=== PATIENT | male | born 1935 | race Caucasian/White ===

== ENCOUNTER 2016-04-29 10:22 | Inpatient (IN) | payer OTHER ==
[~2016-04-29] VITALS: Ht 170.2 cm; Wt 89.8 kg
[~2016-04-29 10:22] MED LIST: CLIN300C86 PO; HYDR-971 PO
[2016-04-29] MEDS ORDERED: VANCOMYCIN 1.5 GM in IV NORMAL SALINE 500ML BAG 500 ML IV ONE (12:15)
[2016-04-29 12:26] VITALS: BP 159/100
--- NOTE | 2016-04-29 12:42 | HP ---
ADMIT DATE: 04/29/2016 CHIEF COMPLAINT: Infected wound. HISTORY OF PRESENT ILLNESS: An 81-year-old white male with a history of atrial fibrillation, chronic venous stasis edema, and gout, was last seen in December of 2014. He came to the office on the day of admission with large infected leg wounds and is admitted for wound care. He states these wounds have been present for about 6 weeks and have been getting increasingly painful but had no other complaints. PAST MEDICAL HISTORY: History of atrial fibrillation. Echocardiogram in 2014 showed an EF of 50% and no other particular abnormalities. He has also been on allopurinol for chronic gout with no problems. History of CKD 3. Last lab work in about 2014. ALLERGIES: No allergies are noted. SOCIAL HISTORY: , nonsmoker, nondrinker. FAMILY HISTORY: Unremarkable. REVIEW OF SYSTEMS: Unremarkable. OBJECTIVE: ENT: All within normal limits. He has very poor hearing. NECK: Revealed no carotid bruits, nodes, or thyroid enlargement. LUNGS: Clear. CARDIOVASCULAR: Irregular rate, rate is about 80-90. No murmurs heard. ABDOMEN: Soft, benign, and nontender. EXTREMITIES: Three large deep wounds on the right lower extremity, the lateral leg wound being the worst and then smaller, but deep wounds on the left anterior leg as well with 3+ pitting edema. Pedal pulses diminished bilaterally. NEUROLOGIC: He has poor hearing. No focal findings were seen. Gait was normal. Cerebellar function normal. ASSESSMENT: 1. Large infected wounds both lower extremities secondary to breakdown of chronic venous stasis. 2. Chronic atrial fibrillation, rate controlled. 3. History of chronic gout. 4. Chronic kidney disease 3. PLAN: Per orders. GARETH DODD MD DR: JESSICA/will JOB#: [id number] / [id number]
[2016-04-29 13:25] VITALS: BP 159/100
[2016-04-29 13:57] LABS: BASO # 0.1 x10^3/uL (0.0-0.2); BASO % 1 % (0-3); EOS % 1 % (0-3); HEMATOCRIT 34.2 % (39.0-53.0); HEMOGLOBIN 10.9 g/dL (13.0-17.5); LYMPH # 1.1 x10^3/uL (1.0-4.8); LYMPH % 13 % (24-48); MEAN CORPUSCULAR HEMOGLOBIN 27 pg (25-35); MEAN CORPUSCULAR HGB CONC 32 g/dL (31-37); MEAN CORPUSCULAR VOLUME 83 fL (79-100); MONO % 10 % (0-9); NEUT % 76 % (31-73); PLATELET COUNT 293 x10^3/uL (140-400); RED CELL DISTRIBUTION WIDTH 18.9 % (11.5-14.5); WHITE BLOOD COUNT 9.1 x10^3/uL (4.0-11.0)
[2016-04-29 14:16] LABS: ALBUMIN 2.6 g/dL (3.4-5.0); ALBUMIN/GLOBULIN RATIO 0.7 (1.0-1.7); CALCIUM 8.8 mg/dL (8.5-10.1); CREATININE 1.5 mg/dL (0.7-1.3); POTASSIUM 4.3 mmol/L (3.5-5.1); TOTAL BILIRUBIN 1.2 mg/dL (0.2-1.0); TOTAL PROTEIN 6.6 g/dL (6.4-8.2); URIC ACID 4.9 mg/dL (3.5-7.2)
[2016-04-29] MEDS: POTASSIUM CHLORIDE 10 MEQ TABLET.ER. PO SCH ×2 (14:49→20:34)
[2016-04-29] MEDS: ALLOPURINOL 100 MG TABLET. PO SCH (14:49)
[2016-04-29] MEDS: MULTIVITAMIN with MINERAL TABLET. PO SCH (14:49)
[2016-04-29] MEDS: ASPIRIN 81 MG TAB.CHEW PO SCH (14:49)
[2016-04-29 15:00] VITALS: BP 139/85
[2016-04-29] MEDS ORDERED: ALLO100T PO (15:05)
[2016-04-29] MEDS ORDERED: ASPI81TA2 PO (15:05)
[2016-04-29] MEDS: FUROSEMIDE 40 MG/4 ML VIAL IVP SCH (15:25)
[2016-04-29] MEDS: NYSTATIN TOPICAL POWDER 15GM BOTTLE. TP SCH ×2 (17:00→20:34)
[2016-04-29 20:49] VITALS: BP 157/102
[2016-04-29 23:00] VITALS: BP_SYST 105; BP_SYST 160; BP_DIAS 80; BP_DIAS 99
[2016-04-30] VITALS (7 sets, daily range): BP systolic 117–172; BP diastolic 84–96
[2016-04-30] MEDS: HYDROCODONE/APAP 5/325MG TABLET. PO PRN (01:33)
[2016-04-30] MEDS: ASPIRIN 81 MG TAB.CHEW PO SCH (08:08)
[2016-04-30] MEDS: FUROSEMIDE 40 MG/4 ML VIAL IVP SCH (08:08)
[2016-04-30] MEDS: ALLOPURINOL 100 MG TABLET. PO SCH (08:08)
[2016-04-30] MEDS: POTASSIUM CHLORIDE 10 MEQ TABLET.ER. PO SCH ×3 (08:09→20:40)
[2016-04-30] MEDS: MULTIVITAMIN with MINERAL TABLET. PO SCH (08:09)
[2016-04-30] MEDS: NYSTATIN TOPICAL POWDER 15GM BOTTLE. TP SCH ×2 (08:09→20:39)
--- NOTE | 2016-04-30 08:23 | PDOC ---
Provider Note Provider Note vss, no temp- edema in legs down, wounds covered- good dp/pt pulses- echo 2014 50 % ef, mild pulm hypertwnsion- alb low 2.6, rest ok- cont daily vanco pending cult- tsh- no more lasix needed now GARETH DODD MD Apr 30, 2016 08:23
[2016-04-30] MEDS: VANCOMYCIN PER PHARMACY MC PRN (09:33)
[2016-04-30] MEDS: ENOXAPARIN 40 MG/0.4 ML DISP.SYRIN. SQ SCH (10:28)
[2016-04-30] MEDS: VANCOMYCIN 1.25 GM in IV NORMAL SALINE 250ML 250 ML IV SCH (15:23)
[2016-05-01] MEDS: HYDROCODONE/APAP 5/325MG TABLET. PO PRN ×2 (02:01→17:51)
[2016-05-01 03:19] VITALS: BP 153/84
[2016-05-01 07:00] VITALS: BP 115/113
--- NOTE | 2016-05-01 07:39 | PDOC ---
Provider Note Provider Note Tmax 100, vss- feels same- tsh up a little, check free T4 - cult pending ,,add merrem re gram neg coverage- c/o pain L shoulder , denies injury, will xr , could be gout related GARETH DODD MD May 01, 2016 07:39
[2016-05-01] MEDS ORDERED: IBUPROFEN 400 MG TABLET. PO PRN (07:45)
[2016-05-01] MEDS: MEROPENEM 1 GM in IV NORMAL SALINE 100ML 100 ML IV SCH ×2 (08:38→18:22)
[2016-05-01] MEDS: MULTIVITAMIN with MINERAL TABLET. PO SCH (08:42)
[2016-05-01] MEDS: POTASSIUM CHLORIDE 10 MEQ TABLET.ER. PO SCH ×3 (08:42→21:07)
[2016-05-01] MEDS: ALLOPURINOL 100 MG TABLET. PO SCH (08:42)
[2016-05-01] MEDS: ENOXAPARIN 40 MG/0.4 ML DISP.SYRIN. SQ SCH (08:42)
[2016-05-01] MEDS: NYSTATIN TOPICAL POWDER 15GM BOTTLE. TP SCH ×2 (08:57→21:07)
--- NOTE | 2016-05-01 09:16 | RAD ---
Left shoulder, 3 views, 05/01/2016: History: Fall, shoulder pain There is severe narrowing of the subacromial space with acromial sclerosis and erosion. The findings are those of chronic rotator cuff degeneration/tear. The humeral head is high riding. There are degenerative changes at the glenohumeral and acromioclavicular articulations. A small bony fragment along the superior aspect of the AC joint appears to be old. No acute fracture or dislocation is identified. IMPRESSION: 1. Evidence of chronic rotator cuff degeneration/tear. 2. Moderate degenerative change at the glenohumeral joint and to a greater degree at the acromioclavicular joint.
--- NOTE | 2016-05-01 09:18 | RAD ---
Right foot, 3 views, 05/01/2016: History: Left foot pain There is a mild hallux valgus deformity with moderate degenerative change at the first MTP joint. Moderate degenerative changes are present at the midfoot level. There is a moderate sized inferior calcaneal spur. No acute fracture or dislocation is identified. IMPRESSION: 1. Moderate degenerative change. 2. No acute bony abnormality is detected.
[2016-05-01 11:05] VITALS: BP 185/113
[2016-05-01 11:29] LABS: BILIRUBIN,URINE NEGATIVE (NEG); GLUCOSE,URINE NEGATIVE (NEG); NITRITE,URINE NEGATIVE (NEG); PROTEIN,URINE 100 mg/dL (NEG-TRACE)
[2016-05-01 11:52] LABS: BACTERIA,URINE FEW /HPF (0-FEW); RBC,URINE OCC /HPF (0-2); WBC,URINE >40 /HPF (0-4)
[2016-05-01 15:00] VITALS: BP 160/110
[2016-05-01] MEDS: VANCOMYCIN PER PHARMACY MC PRN (15:39)
[2016-05-01] MEDS: VANCOMYCIN 1.25 GM in IV NORMAL SALINE 250ML 250 ML IV SCH (16:27)
[2016-05-01] MEDS ORDERED: ACETAMINOPHEN 325 MG TABLET. PO PRN (18:45)
[2016-05-01 19:00] VITALS: BP 169/106
[2016-05-01 20:10] LABS: OBC FLU VALID
[2016-05-01 22:33] VITALS: BP 155/110
[2016-05-02 02:59] VITALS: BP 179/120
[2016-05-02] MEDS: HYDROCODONE/APAP 5/325MG TABLET. PO PRN (03:08)
[2016-05-02] MEDS: MEROPENEM 1 GM in IV NORMAL SALINE 100ML 100 ML IV SCH ×2 (06:00→17:40)
[2016-05-02 07:00] VITALS: BP 149/112
--- NOTE | 2016-05-02 08:38 | PDOC ---
Provider Note Provider Note mssa and pa from wounds- R lat leg wound worst- xr ok but djd- will inject L AC joint, pt eval for poss rehab 05/05, cont ancef/merrem for now GARETH DODD MD May 02, 2016 08:38
[2016-05-02] MEDS ORDERED: methylPREDNISolone ACETATE 40 MG/ML VIAL. IM ONE (08:45)
[2016-05-02] MEDS ORDERED: BUPIVACAINE 0.5% 50 ML VIAL. IJ ONE (08:45)
[2016-05-02] MEDS: MULTIVITAMIN with MINERAL TABLET. PO SCH (09:28)
[2016-05-02] MEDS: POTASSIUM CHLORIDE 10 MEQ TABLET.ER. PO SCH ×3 (09:29→20:24)
[2016-05-02] MEDS: ALLOPURINOL 100 MG TABLET. PO SCH (09:29)
[2016-05-02] MEDS: AMLODIPINE BESYLATE 5 MG TABLET PO SCH (09:29)
[2016-05-02] MEDS: POLYVINYL ALCOHOL 1.4% OPHTH SOLUTION 15ML BOTTLE. OU PRN (09:30)
[2016-05-02] MEDS: ENOXAPARIN 40 MG/0.4 ML DISP.SYRIN. SQ SCH (09:30)
[2016-05-02] MEDS: CEFAZOLIN SODIUM 1 GM in IV NORMAL SALINE 50ML 50 ML IV SCH ×2 (09:35→20:25)
[2016-05-02] MEDS: NYSTATIN TOPICAL POWDER 15GM BOTTLE. TP SCH ×2 (09:35→20:25)
[2016-05-02 11:00] VITALS: BP 166/106
[2016-05-02] MEDS ORDERED: methylPREDNISolone ACETATE 40 MG/ML VIAL. INT ART ONE (13:30)
--- NOTE | 2016-05-02 13:30 | PDOC ---
Provider Note Provider Note L AC joint injected depomedrol 30 mg, marcaine 1 ml, 27 g, zehra well GARETH DODD MD May 02, 2016 13:30
[2016-05-02 15:00] VITALS: BP 154/101
[2016-05-02 19:00] VITALS: BP 171/97
[2016-05-02 23:00] VITALS: BP 169/101
[2016-05-03 02:58] VITALS: BP 157/116
[2016-05-03] MEDS: MEROPENEM 1 GM in IV NORMAL SALINE 100ML 100 ML IV SCH (05:52)
[2016-05-03 07:00] VITALS: BP 149/99
[2016-05-03] MEDS: MULTIVITAMIN with MINERAL TABLET. PO SCH (08:30)
[2016-05-03] MEDS: ALLOPURINOL 100 MG TABLET. PO SCH (08:30)
[2016-05-03] MEDS: AMLODIPINE BESYLATE 5 MG TABLET PO SCH ×2 (08:31→09:30)
[2016-05-03] MEDS: POTASSIUM CHLORIDE 10 MEQ TABLET.ER. PO SCH ×3 (08:31→23:07)
[2016-05-03] MEDS: ENOXAPARIN 40 MG/0.4 ML DISP.SYRIN. SQ SCH (08:31)
[2016-05-03] MEDS: NYSTATIN TOPICAL POWDER 15GM BOTTLE. TP SCH ×2 (08:32→23:10)
[2016-05-03] MEDS: CEFAZOLIN SODIUM 1 GM in IV NORMAL SALINE 50ML 50 ML IV SCH (08:32)
[2016-05-03] MEDS: LOSARTAN POTASSIUM 50 MG TABLET. PO SCH (09:29)
[2016-05-03] MEDS: LEVOFLOXACIN 500 MG TABLET PO SCH (09:30)
[2016-05-03] MEDS: POLYVINYL ALCOHOL 1.4% OPHTH SOLUTION 15ML BOTTLE. OU PRN (09:30)
[2016-05-03 11:00] VITALS: BP 157/100
--- NOTE | 2016-05-03 12:03 | PDOC ---
SUBJECTIVE Subjective feels ok OBJECTIVE Objective BP high , adjust meds Vital Signs Vital Signs Date Time Temp Pulse Resp B/P Pulse Ox O2 Delivery O2 Flow Rate FiO2 05/03/16 11:00 98.3 97 20 157/100 95 Room Air 98.3 05/03/16 09:30 96 157/116 05/03/16 09:29 96 157/116 05/03/16 08:31 96 157/116 05/03/16 08:00 Room Air 05/03/16 07:00 99.4 93 20 149/99 96 Room Air 99.4 05/03/16 02:58 98.7 96 18 157/116 92 Room Air 98.7 05/02/16 23:00 99.4 98 19 169/101 92 Room Air 99.4 05/02/16 20:00 Room Air 05/02/16 19:00 97.6 105 19 171/97 94 Room Air 97.6 05/02/16 15:00 98.8 103 24 154/101 94 Room Air 98.8 I & O Intake and Output 05/03/16 07:00 Intake Total 550 ml Output Total 1100 ml Balance -550 ml Intake Oral 400 ml IV Total 150 ml Output Urine Total 1100 ml # Voids 2 PHYSICAL EXAM Physical Exam lower ext wrapped but ulcers cellulitis seems better heart IRReg abd soft ASSESSMENT/PLAN Assessment/Plan 1. Large infected wounds both lower extremities culture with different bacteria ( staph, psuedomonas and klebsiella) all susceptible to Levaquin 2. Chronic atrial fibrillation, rate controlled. 3. History of chronic gout. 4. Chronic kidney disease 3. 5. HTN adjust meds PT and D/C planning, monitor Bp Problems: ROSA LUCERO MD May 03, 2016 12:03
[2016-05-03 15:00] VITALS: BP 158/107
[2016-05-03 19:00] VITALS: BP 146/94
[2016-05-03 23:11] VITALS: BP 149/93
[2016-05-04 03:29] VITALS: BP 151/98
[2016-05-04] MEDS: LEVOFLOXACIN 500 MG TABLET PO SCH (06:31)
[2016-05-04 06:46] LABS: HEMOGLOBIN 12.4 g/dL (13.0-17.5); RED BLOOD COUNT 4.69 x10^6/uL (4.30-5.70); RED CELL DISTRIBUTION WIDTH 18.9 % (11.5-14.5); WHITE BLOOD COUNT 7.7 x10^3/uL (4.0-11.0)
[2016-05-04 07:00] VITALS: BP 165/106
[2016-05-04 07:04] LABS: ALBUMIN 2.1 g/dL (3.4-5.0); ALBUMIN/GLOBULIN RATIO 0.4 (1.0-1.7); CALCIUM 8.8 mg/dL (8.5-10.1); CREATININE 1.7 mg/dL (0.7-1.3); POTASSIUM 4.5 mmol/L (3.5-5.1); TOTAL BILIRUBIN 0.7 mg/dL (0.2-1.0); TOTAL PROTEIN 7.3 g/dL (6.4-8.2)
[2016-05-04] MEDS: ALLOPURINOL 100 MG TABLET. PO SCH (09:11)
[2016-05-04] MEDS: MULTIVITAMIN with MINERAL TABLET. PO SCH (09:11)
[2016-05-04] MEDS: POTASSIUM CHLORIDE 10 MEQ TABLET.ER. PO SCH ×3 (09:11→20:20)
[2016-05-04] MEDS: ENOXAPARIN 40 MG/0.4 ML DISP.SYRIN. SQ SCH (09:12)
[2016-05-04] MEDS: AMLODIPINE BESYLATE 5 MG TABLET PO SCH (09:13)
[2016-05-04] MEDS: LOSARTAN POTASSIUM 50 MG TABLET. PO SCH (09:15)
[2016-05-04] MEDS: NYSTATIN TOPICAL POWDER 15GM BOTTLE. TP SCH ×2 (09:16→20:24)
[2016-05-04 11:00] VITALS: BP 145/99
[2016-05-04] MEDS ORDERED: METOPROLOL SUCC 24HR ER 100 MG TAB.ER.24H. PO SCH (12:00)
--- NOTE | 2016-05-04 12:28 | PDOC ---
SUBJECTIVE Subjective hard of hearing, feels ok, c/o cough and some wheezing, daughter visiting discussed with daughter OBJECTIVE Objective BP and HR up Vital Signs Vital Signs Date Time Temp Pulse Resp B/P Pulse Ox O2 Delivery O2 Flow Rate FiO2 05/04/16 11:33 96 145/99 05/04/16 11:00 97.9 96 20 145/99 93 Room Air 97.9 05/04/16 09:15 109 165/106 05/04/16 09:13 109 165/106 05/04/16 08:00 Room Air 05/04/16 07:00 99.1 109 22 165/106 92 Room Air 99.1 05/04/16 03:29 98.6 103 20 151/98 96 Room Air 98.6 05/03/16 23:11 97.2 98 20 149/93 96 Room Air 97.2 05/03/16 20:00 Room Air 05/03/16 19:00 98.0 102 20 146/94 94 Room Air 98.0 05/03/16 15:00 98.9 96 20 158/107 93 Room Air 98.9 I & O Intake and Output 05/04/16 07:00 Intake Total 270 ml Output Total 600 ml Balance -330 ml Intake Oral 270 ml Output Urine Total 600 ml # Voids 2 # Bowel Movements 1 PHYSICAL EXAM Physical Exam lungs few scattered wheezes, heart Irreg abd soft ext much better ASSESSMENT/PLAN Assessment/Plan 1. Large infected wounds both lower extremities culture with different bacteria ( staph, psuedomonas and klebsiella) all susceptible to Levaquin 2. Chronic atrial fibrillation, rate controlled. 3. History of chronic gout. 4. Chronic kidney disease 3. 5. HTN adjust meds 6- cough and wheezing check CXR, breathing treatment, evaluate swallowing , discussed with daughter Problems: COMMENT Lab Laboratory Tests Test 05/04/16 05:23 White Blood Count 7.7x10^3/uL (4.0-11.0) Red Blood Count 4.69x10^6/uL (4.30-5.70) Hemoglobin 12.4g/dL (13.0-17.5) Hematocrit 39.0% (39.0-53.0) Mean Corpuscular Volume 83fL (79-100) Mean Corpuscular Hemoglobin 26pg (25-35) Mean Corpuscular Hemoglobin Concent 32g/dL (31-37) Red Cell Distribution Width 18.9% (11.5-14.5) Platelet Count 319x10^3/uL (140-400) Sodium Level 139mmol/L (136-145) Potassium Level 4.5mmol/L (3.5-5.1) Chloride Level 103mmol/L (98-107) Carbon Dioxide Level 26mmol/L (21-32) Anion Gap 10 (6-14) Blood Urea Nitrogen 40mg/dL (8-26) Creatinine 1.7mg/dL (0.7-1.3) Estimated GFR (Cockcroft-Gault) 39.0 BUN/Creatinine Ratio 24 (6-20) Glucose Level 113mg/dL (70-99) Calcium Level 8.8mg/dL (8.5-10.1) Total Bilirubin 0.7mg/dL (0.2-1.0) Aspartate Amino Transf (AST/SGOT) 66U/L (15-37) Alanine Aminotransferase (ALT/SGPT) 34U/L (16-63) Alkaline Phosphatase 88U/L (46-116) Total Protein 7.3g/dL (6.4-8.2) Albumin 2.1g/dL (3.4-5.0) Albumin/Globulin Ratio 0.4 (1.0-1.7) ROSA LUCERO MD May 04, 2016 12:28
--- NOTE | 2016-05-04 13:23 | RAD ---
Portable chest, 05/04/2016: History: Shortness of breath, cough Comparison is made to a study from 10/01/2012. The heart is moderately enlarged. There is calcific plaquing and tortuosity of the thoracic aorta. The pulmonary vascularity is normal. Mild hazy bibasilar opacities have developed suggesting mild infiltrate. Pleural fluid layering posteriorly could be contributing to this appearance. Moderately severe degenerative change is present at both shoulders. IMPRESSION: 1. Cardiomegaly and aortic atherosclerosis. 2. Mild basilar infiltrates have developed.
[2016-05-04 15:00] VITALS: BP 144/90
[2016-05-04] MEDS: IPRATRPIUM/ALBUTEROL 0.5/2.5MG 3 ML NEBU. NEB SCH ×2 (16:43→19:30)
[2016-05-04 19:00] VITALS: BP 139/95
[2016-05-04 23:07] VITALS: BP 133/90
[2016-05-05 03:41] VITALS: BP 124/68
[2016-05-05 04:04] LABS: HEMATOCRIT 38.4 % (39.0-53.0); RED BLOOD COUNT 4.6 x10^6/uL (4.30-5.70); RED CELL DISTRIBUTION WIDTH 18.5 % (11.5-14.5); WHITE BLOOD COUNT 6.8 x10^3/uL (4.0-11.0)
[2016-05-05 04:21] LABS: CALCIUM 8.7 mg/dL (8.5-10.1); CREATININE 1.8 mg/dL (0.7-1.3); GFR 36.5; POTASSIUM 4.7 mmol/L (3.5-5.1)
[2016-05-05] MEDS: LEVOFLOXACIN 500 MG TABLET PO SCH (05:54)
[2016-05-05 07:00] VITALS: BP 116/81
[2016-05-05] MEDS: IPRATRPIUM/ALBUTEROL 0.5/2.5MG 3 ML NEBU. NEB SCH (07:15)
--- NOTE | 2016-05-05 07:34 | PDOC ---
Provider Note Provider Note vss, no temp- K+ 4.7, wounds slowly better- no distress- will transfer snf when available, same meds GARETH DODD MD May 05, 2016 07:34
--- NOTE | 2016-05-05 07:38 | PDOC ---
Provider Note Provider Note [id number] GARETH DODD MD May 05, 2016 07:38
--- NOTE | 2016-05-05 07:40 | DISCH ---
DISCHARGE FINAL DIAGNOSIS Problems Medical Problems: (1) Wound infection Status: Acute CONDITION ON DISCHARGE: Stable SNF STAY <30 DAYS: Yes POST DISCHARGE ORDERS ACTIVITY ORDERS: Resume previous activity DIET AFTER DISCHARGE: Cardiac FOLLOW-UP PHYSICIAN FOLLOW-UP: as needed GARETH DODD MD May 05, 2016 07:40
[2016-05-05] MEDS: AMLODIPINE BESYLATE 5 MG TABLET PO SCH (08:40)
[2016-05-05] MEDS: LOSARTAN POTASSIUM 50 MG TABLET. PO SCH (08:40)
[2016-05-05] MEDS: MULTIVITAMIN with MINERAL TABLET. PO SCH (08:40)
[2016-05-05] MEDS: ALLOPURINOL 100 MG TABLET. PO SCH (08:41)
[2016-05-05] MEDS: CEPHALEXIN 250 MG CAPSULE PO SCH ×2 (08:41→17:59)
[2016-05-05] MEDS: NYSTATIN TOPICAL POWDER 15GM BOTTLE. TP SCH ×2 (08:42→19:59)
[2016-05-05 11:10] VITALS: BP 123/86
[2016-05-05 14:48] VITALS: BP 94/60
--- NOTE | 2016-05-05 17:29 | DS ---
DATE OF DISCHARGE: 05/05/2016 HOSPITAL SUMMARY: An 81-year-old white male came in with large malodorous draining wounds in both lower extremities and significant edema. Cultures of the wounds grew out MSSA, pseudomonas and some Klebsiella as well and urine culture had no growth as did blood cultures. CBC was normal. Chemistry profile showed a creatinine of 1.5 on admission and subsequently creatinine was 1.8 prior to dismissal after some Lasix. TSH was mildly elevated at 5.56, but the T4 was normal consistent with subclinical hypothyroidism. Albumin was low at 2.1 and he had some proteinuria. Chest x-ray was clear, arthritis of both shoulders and foot and ankle were seen on x-rays indicating the reasons for pain. He was treated with IV vancomycin initially, then meropenem added for gram negative coverage and ultimately switched to oral medications. Blood pressure meds were added as he was hypertensive on admission and he currently is doing better on amlodipine and losartan. Speech evaluation revealed evidence of some tendency to aspirate with thin liquids and honey thickened liquids were recommended and instituted. Wound care has been managed under the care of the wound care consultants and he is able to be transferred to alf at this time. FINAL DIAGNOSES: 1. Stage 2 and 3 ulcers of bilateral lower extremity secondary to chronic venous stasis edema. 2. Prerenal azotemia. 3. Hypertension, new diagnosis. OPERATIONS AND PROCEDURES: Arthrocentesis of the left AC joint. COMPLICATIONS: None. CONSULTATIONS: None. DISPOSITION: New meds include amlodipine 10 mg daily, losartan 50 mg daily and Keflex 500 mg twice a day for 3 more days, Levaquin 500 mg daily for 5 more days and wound care. Honey thickened liquids recommended and will see if the family will be ____ to continue this or not. His prognosis is guarded. He is on no diuretic as his edema has resolved with leg elevation and some diuretics. GARETH DODD MD DR: JESSICA/will JOB#: [id number] / [id number]
[2016-05-05 19:00] VITALS: BP 121/87
[2016-05-05 22:55] VITALS: BP 115/72
[2016-05-06 03:20] VITALS: BP 129/85
[2016-05-06] MEDS: CEPHALEXIN 250 MG CAPSULE PO SCH (06:06)
[2016-05-06] MEDS: LEVOFLOXACIN 500 MG TABLET PO SCH (06:06)
[2016-05-06 07:41] VITALS: BP 121/79
[2016-05-06] MEDS: ALLOPURINOL 100 MG TABLET. PO SCH (09:00)
[2016-05-06] MEDS ORDERED: AMLODIPINE BESYLATE 5 MG TABLET PO SCH (09:00)
[2016-05-06] MEDS: LOSARTAN POTASSIUM 50 MG TABLET. PO SCH (09:00)
[2016-05-06] MEDS: MULTIVITAMIN with MINERAL TABLET. PO SCH (09:00)
[2016-05-06] MEDS: NYSTATIN TOPICAL POWDER 15GM BOTTLE. TP SCH (09:00)
[2016-05-06] MEDS: POLYVINYL ALCOHOL 1.4% OPHTH SOLUTION 15ML BOTTLE. OU PRN (09:00)
[2016-05-06 10:52] VITALS: BP 109/72
== END 2016-05-06 12:31 | DRG 592 ==
LOC: 5 SOUTH 10:57
PROVIDERS: ADMIT Family Medicine; ATTEND Family Medicine
DX: L97.919 Non-pressure chronic ulcer of unspecified part of right lower leg with unspecified severity (principal); E43 Unspecified severe protein-calorie malnutrition; R64 Cachexia; I12.9 Hypertensive chronic kidney disease with stage 1 through stage 4 chronic kidney disease, or unspecified chronic kidney disease; L97.929 Non-pressure chronic ulcer of unspecified part of left lower leg with unspecified severity; I87.8 Other specified disorders of veins; H91.90 Unspecified hearing loss, unspecified ear; M1A.9XX0 Chronic gout, unspecified, without tophus (tophi); I48.2 Chronic atrial fibrillation; N18.3 Chronic kidney disease, stage 3 (moderate); Z79.899 Other long term (current) drug therapy; Z68.31 Body mass index [BMI] 31.0-31.9, adult
CPT/HCPCS: 36415; 71010; 73030; 73620; 80048; 80053; 80202; 81001; 82947; 84132; 84439; 84443; 84550; 85027; 87070; 87086; 87186; 87205; 87804; 94250; 94640; 94760; J0690; J1030; J1650; J1940; J2185; J3370; J7040; J7050; J7620; 92526; 92610; 97530; J7030

== ENCOUNTER 2016-05-16 23:49 | Inpatient (IN) | payer OTHER ==
[~2016-05-16] VITALS: Ht 170.2 cm; Wt 79.6 kg
[~2016-05-16 23:49] MED LIST changes: +ALLO100T PO; +ASPI81TA2 PO
--- NOTE | 2016-05-17 00:37 | PHYS DOC ---
Past Medical History Past Medical History: CHF, Other Additional Past Medical Histor: CHRONIC KIDNEY DISEASE, GOUT,YEAST INFECTION Past Surgical History: Other Additional Past Surgical Histo: BACK Alcohol Use: None Drug Use: None Adult General Chief Complaint Chief Complaint: ALTERED MENTAL STATUS [facility] HPI Patient is a 81 year old male who presents by EMS for unclear report. Nursing report by phone states altered mental status for past 2 days, but EMS was told he has itchy skin rash for the past 2 hours. Patient has no acute complaints. He states he was woken from sleep and told he has to come here. He states he has months of itching that is no better or worse than usual. He states he is taking antibiotics for cough and for leg sores/infection. He states he is eating and drinking, stooling and urinating without issue. He denies headache, dizziness, vision changes, chest pain, dyspnea, abdominal pain, n/v, diarrhea, numbness, tingling, weakness. Review of Systems Review of Systems Constitutional: Denies fever or chills [] Eyes: Denies change in visual acuity, redness, or eye pain [] HENT: Denies nasal congestion or sore throat [] Respiratory: Denies cough or shortness of breath [] Cardiovascular: No additional information not addressed in HPI [] GI: Denies abdominal pain, nausea, vomiting, bloody stools or diarrhea [] : Denies dysuria or hematuria [] Musculoskeletal: Denies back pain or joint pain [] Integument: Denies rash or skin lesions [] Neurologic: Denies headache, focal weakness or sensory changes [] Endocrine: Denies polyuria or polydipsia [] Current Medications Current Medications Current Medications Medications (Trade) Dose Ordered Sig/[facility] Start Time Stop Time Status Last Admin Dose Admin Sodium Chloride (Iv Sodium Chloride 0.9% 500ml Bag) 500 ml @ 500 mls/hr 1X ONCE 05/17/16 01:15 05/17/16 02:14 Allergies Allergies Allergies Coded Allergies Type Severity Reaction Last Updated Verified No Known Drug Allergies 02/05/15 No Physical Exam Physical Exam Constitutional: Well developed, well nourished, no acute distress, non-toxic appearance. [] HENT: Normocephalic, atraumatic, bilateral external ears normal, oropharynx moist, no oral exudates, nose normal. [] Eyes: PERRLA, EOMI, conjunctiva normal, no discharge. [] Neck: Normal range of motion, no tenderness, supple. [] Cardiovascular:Heart rate regular rhythm [] Lungs & Thorax: Bilateral breath sounds clear to auscultation [] Abdomen: Bowel sounds normal, soft, no tenderness, no masses, no pulsatile masses. [] Skin: Warm, dry, no erythema. Scant rubrous rash that blanches and is nontender to trunk [] Back: Normal ROM. [] Extremities: No tenderness, ROM intact. Dry dressings to lower extremities [] Neurologic: Alert and oriented X 3, normal motor function, normal sensory function, no focal deficits noted, cranial nerves II through XII intact. [] Psychologic: Affect normal, judgement normal, mood normal. [] Current Patient Data Vital Signs Vital Signs Date Time Temp Pulse Resp B/P Pulse Ox O2 Delivery O2 Flow Rate FiO2 05/17/16 00:09 97.8 93 20 131/91 98 Room Air 97.8 Lab Values Laboratory Tests Test 05/17/16 00:02 White Blood Count 17.9x10^3/uL (4.0-11.0) H Red Blood Count 5.37x10^6/uL (4.30-5.70) Hemoglobin 14.0g/dL (13.0-17.5) Hematocrit 44.6% (39.0-53.0) Mean Corpuscular Volume 83fL (79-100) Mean Corpuscular Hemoglobin 26pg (25-35) Mean Corpuscular Hemoglobin Concent 31g/dL (31-37) Red Cell Distribution Width 19.3% (11.5-14.5) H Platelet Count 193x10^3/uL (140-400) Neutrophils (%) (Auto) 82% (31-73) H Lymphocytes (%) (Auto) 9% (24-48) L Monocytes (%) (Auto) 8% (0-9) Eosinophils (%) (Auto) 0% (0-3) Basophils (%) (Auto) 0% (0-3) Neutrophils # (Auto) 14.7x10^3uL (1.8-7.7) H Lymphocytes # (Auto) 1.6x10^3/uL (1.0-4.8) Monocytes # (Auto) 1.4x10^3/uL (0.0-1.1) H Eosinophils # (Auto) 0.1x10^3/uL (0.0-0.7) Basophils # (Auto) 0.1x10^3/uL (0.0-0.2) Platelet Estimate Pending Sodium Level 154mmol/L (136-145) H Potassium Level 3.9mmol/L (3.5-5.1) Chloride Level 113mmol/L (98-107) H Carbon Dioxide Level 30mmol/L (21-32) Anion Gap 11 (6-14) Blood Urea Nitrogen 56mg/dL (8-26) H Creatinine 2.9mg/dL (0.7-1.3) H Estimated GFR (Cockcroft-Gault) 21.0 Glucose Level 133mg/dL (70-99) H Calcium Level 9.6mg/dL (8.5-10.1) Laboratory Tests 05/17/16 00:02 Laboratory Tests 05/17/16 00:02 EKG EKG EKG as interpreted by me as irregular rhythm, rate 90, PVC, does not meet STEMI criteria Course & Med Decision Making Course & Med Decision Making Pertinent Labs and Imaging studies reviewed. (See chart for details) Patient exhibits no hallucinations during ED observation. However, his laboratory evaluation shows acute renal failure that I suspect is from dehydration. Discussed case with Dr. Jackson to admit for ELSI, who agrees to admit. Dragon Disclaimer Dragon Disclaimer This electronic medical record was generated, in whole or in part, using a voice recognition dictation system. Departure Departure Impression: Primary Impression: Acute renal failure Disposition: ADMITTED INPATIENT Condition: STABLE Referrals: GARETH JACKSON MD (PCP) Problem Qualifiers Primary Impression: Acute renal failure Acute renal failure type: unspecified Qualified Code: N17.9 - Acute kidney failure, unspecified Santos MOULTON MD May 17, 2016 00:36
[2016-05-17 00:50] LABS: BASO # 0.1 x10^3/uL (0.0-0.2); BASO % 0 % (0-3); EOS % 0 % (0-3); HEMATOCRIT 44.6 % (39.0-53.0); LYMPH # 1.6 x10^3/uL (1.0-4.8); LYMPH % 9 % (24-48); MEAN CORPUSCULAR HEMOGLOBIN 26 pg (25-35); MEAN CORPUSCULAR HGB CONC 31 g/dL (31-37); MEAN CORPUSCULAR VOLUME 83 fL (79-100); MONO % 8 % (0-9); NEUT % 82 % (31-73); PLATELET COUNT 193 x10^3/uL (140-400); RED BLOOD COUNT 5.37 x10^6/uL (4.30-5.70); RED CELL DISTRIBUTION WIDTH 19.3 % (11.5-14.5); WHITE BLOOD COUNT 17.9 x10^3/uL (4.0-11.0)
[2016-05-17 00:57] LABS: CALCIUM 9.6 mg/dL (8.5-10.1); CREATININE 2.9 mg/dL (0.7-1.3); POTASSIUM 3.9 mmol/L (3.5-5.1)
[2016-05-17] MEDS ORDERED: IV NORMAL SALINE 500ML BAG 500 ML IV ONE (01:15)
[2016-05-17] MEDS ORDERED: ACETAMINOPHEN 325 MG TABLET. PO PRN (01:45)
[2016-05-17] MEDS ORDERED: ONDANSETRON PF 4 MG/2 ML VIAL. IV PRN (01:45)
[2016-05-17 03:00] VITALS: BP 128/98
[2016-05-17] MEDS: IV NORMAL SALINE 1000ML BAG 1,000 ML IV SCH ×3 (03:00→18:22)
[2016-05-17 04:52] LABS: % EOS 1 % (0-5)
[2016-05-17 04:53] LABS: ANISOCYTOSIS SLIGHT; MICROCYTOSIS SLIGHT; PLT ESTIMATE ADEQUATE (ADEQUATE)
[2016-05-17] MEDS ORDERED: SALI10002 MM (04:55)
[2016-05-17] MEDS ORDERED: CEPH500C PO (04:55)
[2016-05-17] MEDS ORDERED: AMLO10TA2 PO (04:55)
[2016-05-17] MEDS ORDERED: ACET325T9 PO (04:55)
[2016-05-17] MEDS ORDERED: IPRA3AMP NEB (04:55)
[2016-05-17] MEDS ORDERED: DIPH25CA58 PO (04:55)
[2016-05-17] MEDS ORDERED: MICO30CR11 TP (05:02)
[2016-05-17] MEDS ORDERED: HYDR-2666 PO (05:02)
[2016-05-17] MEDS ORDERED: FLUC200T4 PO (05:02)
[2016-05-17] MEDS ORDERED: MULT-237 PO (05:02)
[2016-05-17] MEDS ORDERED: LOSA50TA6 PO (05:02)
[2016-05-17] MEDS ORDERED: LEVO500T8 PO (05:02)
[2016-05-17] MEDS ORDERED: NYST30PO9 TP (05:03)
[2016-05-17] MEDS ORDERED: CIME400T PO (05:06)
[2016-05-17] MEDS ORDERED: ZINC30OI TP (05:06)
[2016-05-17] MEDS ORDERED: POLY15DR20 OP (05:06)
[2016-05-17] MEDS ORDERED: AMIN30LI5 PO (05:06)
[2016-05-17 07:00] VITALS: BP 142/94
--- NOTE | 2016-05-17 09:37 | PDOC ---
GENERAL General: see dictated H&P. Problems: VITAL SIGNS Vital Signs: Vital Signs Date Time Temp Pulse Resp B/P Pulse Ox O2 Delivery O2 Flow Rate FiO2 05/17/16 07:00 97.5 110 18 142/94 96 Room Air 97.5 I & O I & O Intake and Output 05/17/16 07:00 Intake Total 0 ml Balance 0 ml Intake Oral 0 ml ALLERGIES Allergies: Allergies Coded Allergies Type Severity Reaction Last Updated Verified No Known Drug Allergies 02/05/15 No MEDS Medications: Current Medications Medications (Trade) Dose Ordered Sig/[facility] Start Time Stop Time Status Last Admin Dose Admin Acetaminophen (Tylenol) 650 mg PRN Q4HRS PRN 05/17/16 01:45 05/18/16 01:44 Ondansetron HCl 4 mg 4 mg PRN Q8HRS PRN 05/17/16 01:45 05/18/16 01:44 Sodium Chloride (Iv Sodium Chloride 0.9% 500ml Bag) 500 ml @ 500 mls/hr 1X ONCE 05/17/16 01:15 05/17/16 02:14 DC 05/17/16 01:25 500 MLS/HR Sodium Chloride (Iv Sodium Chloride 0.9% 1000ml Bag) 1,000 ml @ 150 mls/hr Q6H40M 05/17/16 01:45 05/18/16 01:44 05/17/16 07:47 150 MLS/HR LAB Lab: Laboratory Tests Test 05/17/16 00:02 White Blood Count 17.9x10^3/uL (4.0-11.0) Red Blood Count 5.37x10^6/uL (4.30-5.70) Hemoglobin 14.0g/dL (13.0-17.5) Hematocrit 44.6% (39.0-53.0) Mean Corpuscular Volume 83fL (79-100) Mean Corpuscular Hemoglobin 26pg (25-35) Mean Corpuscular Hemoglobin Concent 31g/dL (31-37) Red Cell Distribution Width 19.3% (11.5-14.5) Platelet Count 193x10^3/uL (140-400) Neutrophils (%) (Auto) 82% (31-73) Lymphocytes (%) (Auto) 9% (24-48) Monocytes (%) (Auto) 8% (0-9) Eosinophils (%) (Auto) 0% (0-3) Basophils (%) (Auto) 0% (0-3) Neutrophils # (Auto) 14.7x10^3uL (1.8-7.7) Lymphocytes # (Auto) 1.6x10^3/uL (1.0-4.8) Monocytes # (Auto) 1.4x10^3/uL (0.0-1.1) Eosinophils # (Auto) 0.1x10^3/uL (0.0-0.7) Basophils # (Auto) 0.1x10^3/uL (0.0-0.2) Segmented Neutrophils % 87% (35-66) Lymphocytes % 8% (24-48) Atypical Lymphocytes % (Manual) 2% (0-0) Monocytes % 2% (0-10) Eosinophils % 1% (0-5) Platelet Estimate Adequate (ADEQUATE) Anisocytosis Slight Microcytosis Slight Sodium Level 154mmol/L (136-145) Potassium Level 3.9mmol/L (3.5-5.1) Chloride Level 113mmol/L (98-107) Carbon Dioxide Level 30mmol/L (21-32) Anion Gap 11 (6-14) Blood Urea Nitrogen 56mg/dL (8-26) Creatinine 2.9mg/dL (0.7-1.3) Estimated GFR (Cockcroft-Gault) 21.0 Glucose Level 133mg/dL (70-99) Calcium Level 9.6mg/dL (8.5-10.1) MAUREEN VARELA MD May 17, 2016 09:37
[2016-05-17] MEDS ORDERED: ACETAMINOPHEN 325 MG TABLET. PO SCH (09:45)
[2016-05-17] MEDS ORDERED: HYDROCODONE/APAP 5/325MG TABLET. PO PRN (09:45)
[2016-05-17] MEDS ORDERED: IPRATRPIUM/ALBUTEROL 0.5/2.5MG 3 ML NEBU. ONE (10:47)
[2016-05-17 10:48] VITALS: BP 131/84
--- NOTE | 2016-05-17 10:57 | HP ---
ADMIT DATE: 05/17/2016 CHIEF COMPLAINT AND HISTORY OF PRESENT ILLNESS: This is an 81-year-old white male patient, of Dr. John Jackson's, was brought from [facility] to the Emergency Room on the evening prior to admission for uncertain reasons per the Emergency Room. The patient's major complaint is that he has had trouble swallowing and some sore throat and does not like second liquids. He was found to have elevated BUN and creatinine over his baseline from last discharge consistent with some acute renal failure and sodium of 154 suggesting dehydration and admitted for treatment of the same. He still has bandages on both shins from prior hospitalization where he was admitted and had infection at that point in time with multiple organisms and venous stasis leg ulcers. PAST MEDICAL HISTORY: Remarkable for gout and yeast infections. PAST SURGICAL HISTORY: He has had a prior back surgery. MEDICATIONS: Were brought with the patient. Listed on the computer and have been addressed. ALLERGIES: No known drug allergies. SOCIAL HISTORY: Noncontributory. FAMILY HISTORY: Noncontributory. REVIEW OF SYSTEMS: Is limited due to his hearing, which is very poor, although he does have a family friend who relates the fact that he has been eating much less second liquids and complaining bitterly about it at the [facility]. PHYSICAL EXAMINATION: GENERAL: He is a well-developed, well-nourished white male, appearing in no acute distress. VITAL SIGNS: Stable. He is afebrile. HEAD, EYES, EARS, NOSE, THROAT: Unremarkable. NECK: Supple, with thyromegaly. CHEST: Clear to auscultation and percussion. HEART: Regular rate and rhythm without S3 or S4 murmur. ABDOMEN: Soft, nontender, without hepatosplenomegaly or masses. EXTREMITIES: Reveal venous stasis changes in both lower extremities with minimal edema. Both shins, wounds are currently covered come back on the same. NEUROLOGIC: Unremarkable other than the decreased hearing. IMPRESSION: 1. Acute renal failure on top of chronic kidney disease, likely due to dehydration, likely due to poor p.o. intake as described above. 2. Other problems listed above. PLAN: The patient has been admitted. He will be generally hydrated. Labs will be followed. Wound Care will be asked to see him and the patient will be monitored, managed, and treated appropriately. MAUREEN VARELA MD DR: Konstantin JOB#: [id number] / [id number]
--- NOTE | 2016-05-17 11:09 | EKG ---
[facility] [address] [place] [address] Test Date: 2016-05-17 Test Time: 00:05:00 Pat Name: ED PUENTES Department: Room: Gender: M Supervisor Weaving: : 1935 Requested By: Santos MOULTON Order Number: [id number] Reading MD: Measurements Intervals [place] Rate: 90 P: HI: QRS: -62 QRSD: 98 T: 106 QT: 372 QTc: 459 Interpretive Statements IRREGULAR RHYTHM, NO P-WAVE FOUND VENTRICULAR PREMATURE COMPLEX(ES) ABNORMAL LEFT AXIS DEVIATION S1,S2,S3 PATTERN LEFT ANTERIOR FASCICULAR BLOCK INCOMPLETE RIGHT BUNDLE BRANCH BLOCK CONSIDER LEFT VENTRICULAR HYPERTROPHY T ABNORMALITY IN ANTERIOR LEADS LATERAL LEADS RI6.01 Unconfirmed report No previous ECG available for comparison
[2016-05-17] MEDS: FAMOTIDINE 20 MG TABLET. PO SCH ×2 (12:31→20:54)
[2016-05-17] MEDS: ASPIRIN 81 MG TAB.CHEW PO SCH (12:31)
[2016-05-17] MEDS: AMLODIPINE BESYLATE 10 MG TABLET PO SCH (12:32)
[2016-05-17] MEDS: ALLOPURINOL 100 MG TABLET. PO SCH (12:32)
[2016-05-17] MEDS: LOSARTAN POTASSIUM 50 MG TABLET. PO SCH (12:32)
[2016-05-17] MEDS: IPRATRPIUM/ALBUTEROL 0.5/2.5MG 3 ML NEBU. NEB SCH ×2 (13:00→19:14)
[2016-05-17] MEDS ORDERED: DIPHENHYDRAMINE HCL 25 MG CAPSULE PO SCH (13:00)
--- NOTE | 2016-05-17 13:41 | PDOC2 ---
NEUROLOGY CONSULT Date of Admission Date of Admission DATE: 05/17/16 TIME: 13:34 Reason for Consult Reason for Consult: Altered mental status Referring Physician Referring Physician: Dr. Mars Source Source: Caregiver, Chart review, Patient History of Present Illness History of Present Illness The patient is an 81-year-old right-handed male admitted from the emergency department early this morning for altered mental status. He has not had any imaging of the brain. He was just discharged last week from admission for extensive wounds on his legs, and was at the nursing facility. 2 or 3 days ago, the son-in-law noticed drooping of the left face. He was not as alert. He was on high doses of Benadryl and these medications have been discontinued here. No one has witnessed any seizure activity. At baseline the patient does not do his finances and does have hearing loss, but drives and does errands on his own, ambulates, and does not require help with his activities of daily living. He has not been incontinent. There is no prior history of stroke, seizure, or head injury. Past Medical History Cardiovascular: AFIB GI: Other (C diff) Musculoskeletal: Osteoarthritis Past Surgical History Past Surgical History: Total hip replacement (bilateral) Family History Family History: CAD Social History Social History , no tobacco or alcohol Current Medications Current Medications Current Medications Sodium Chloride (Iv Sodium Chloride 0.9% 500ml Bag) 500 ml @ 500 mls/hr 1X ONCE IV Last administered on 05/17/16 01:25; Start 05/17/16 at 01:15; Stop 01/23 at 02:14; Status DC Ondansetron HCl 4 mg 4 mg PRN Q8HRS PRN IV NAUSEA/VOMITING; Start 05/17/16 at 01:45; Stop 05/18/16 at 01:44 Sodium Chloride (Iv Sodium Chloride 0.9% 1000ml Bag) 1,000 ml @ 150 mls/hr Q6H40M IV Last administered on 05/17/16 07:47; Start 05/17/16 at 01:45; Stop 05/18/16 at 01:44 Acetaminophen (Tylenol) 650 mg PRN Q4HRS PRN PO FEVER; Start 05/17/16 at 01:45 ; Stop 05/18/16 at 01:44 Acetaminophen (Tylenol) 650 mg PRN Q4HRS PO ; Start 05/17/16 at 09:45 Allopurinol (Zyloprim) 100 mg DAILY PO Last administered on 05/17/16 12:32; Start 05/17/16 at 10:30 Amlodipine Besylate (Norvasc) 10 mg DAILY PO Last administered on 05/17/16 12: 32; Start 05/17/16 at 10:30 Aspirin (Children'S Aspirin) 81 mg DAILY PO Last administered on 05/17/16 12: 31; Start 05/17/16 at 10:30 Diphenhydramine HCl (Benadryl) 25 mg QID PO ; Start 05/17/16 at 13:00; Stop 01/23 at 13:00; Status DC Acetaminophen/ Hydrocodone Bitart (Lortab 5/325) 1 tab PRN Q6HRS PRN PO PAIN; Start 05/17/16 at 09:45 Albuterol/ Ipratropium (Duoneb) 3 ml QID NEB ; Start 05/17/16 at 13:00 Losartan Potassium (Cozaar) 50 mg DAILY PO Last administered on 05/17/16 12:32 ; Start 05/17/16 at 10:30 Famotidine (Pepcid) 20 mg BID PO Last administered on 05/17/16 12:31; Start at 10:30 Albuterol/ Ipratropium (Duoneb) 3 ml STK-MED ONCE .ROUTE Last administered on 10:54; Start 05/17/16 at 10:47; Stop 05/17/16 at 10:48; Status DC Active Scripts Active Clindamycin Hcl 300 Mg Capsule 300 Mg PO QID 7 Days [place] 5-325 Tablet (Acetaminophen/Hydrocodone Bitart) 1 Each Tablet 1 Tab PO PRN Q6HRS PRN Reported Zinc Oxide 30 Gm Oint...g. 30 Gm TP BID Cimetidine 400 Mg Tablet 400 Mg PO BID Pro-Stat [place] Liquid Packet (Amino Acids/Protein Hydrolys) 30 Ml Liquid.pkt 30 Ml PO DAILY Polyvinyl Alcohol 15 Ml Drops 15 Ml OP PRN Q15MIN PRN Nystatin 15 Gm Powder 1 Nishant TP BID Daily Vitamin Formula-Minerals (Multivitamin With Minerals) 1 Each Tablet 1 Each PO Miconazole Nitrate 30 Gm Cream..g. 30 Gm TP BID Losartan Potassium 50 Mg Tablet 50 Mg PO DAILY Levofloxacin 500 Mg Tablet 1 Tab PO DAILY Fluconazole 200 Mg Tablet 1 Tab PO BID Duoneb 0.5-3(2.5) Mg/3 Ml (Albuterol/Ipratropium) 3 Ml Ampul.neb 3 Ml NEB QID Cephalexin 500 Mg Capsule 1 Cap PO BID Biotene (Saliva Substitution Combo No.9) 1,000 Ml Mouthwash 1,000 Ml MM QID Benadryl (Diphenhydramine Hcl) 25 Mg Capsule 2 Cap PO QID Amlodipine Besylate 10 Mg Tablet 10 Mg PO DAILY Tylenol (Acetaminophen) 325 Mg Tablet 1 Tab PO PRN Q4HRS Aspirin 81 Mg Tab.chew 81 Mg PO DAILY Allopurinol 100 Mg Tablet 100 Mg PO DAILY Allergies Allergies: Coded Allergies: No Known Drug Allergies (Unverified , 02/05/15) ROS Review of System Patient denies fevers, chills, weight loss, dyspnea, angina, abdominal pain, change in bowels, or dysuria. 14 point review of systems is negative. Physical Exam Physical Examination PHYSICAL EXAMINATION: Vital signs: see above. General appearance is normal and in no acute distress. HEENT: Normocephalic and nontraumatic. Eyes, nose, ears, and throat are unremarkable. Neck is supple. No lymphadenopathy. No bruits are heard over the carotid artery. No crepitus. NEUROLOGICAL EXAMINATION: Mental Status Examination: Alert. He is hard of hearing. He knows the location but not the date, but does know month and year. Answers questions and follows commends. Pupils are equal round and reactive to light and accommodation. Extraocular movements are intact. Visual field exam shows no defect on the direct confrontation. No motor or sensory deficits on the facial exam. Uvula in the midline and the soft palate elevated symmetrically. No deviation of the tongue to any direction. Gross hearing is normal. Shoulder shrug normal. Muscle tone is normal. Muscle strength is 5. Deep tendon reflexes are 2 +. There are bilateral grasp reflexes. Plantar reflex is with flexion response bilaterally. [id number] test performance is accurate. Alternative movements are accurate. Gait not tested. Sensory exam shows no deficits. No cerebellar signs are elicited. Vitals VITALS Vital Signs Date Time Temp Pulse Resp B/P Pulse Ox O2 Delivery O2 Flow Rate FiO2 05/17/16 12:32 84 131/84 05/17/16 10:55 96 Room Air 05/17/16 10:48 97.6 18 97.6 Labs Labs Laboratory Tests Test 05/17/16 00:02 White Blood Count 17.9x10^3/uL (4.0-11.0) Red Blood Count 5.37x10^6/uL (4.30-5.70) Hemoglobin 14.0g/dL (13.0-17.5) Hematocrit 44.6% (39.0-53.0) Mean Corpuscular Volume 83fL (79-100) Mean Corpuscular Hemoglobin 26pg (25-35) Mean Corpuscular Hemoglobin Concent 31g/dL (31-37) Red Cell Distribution Width 19.3% (11.5-14.5) Platelet Count 193x10^3/uL (140-400) Neutrophils (%) (Auto) 82% (31-73) Lymphocytes (%) (Auto) 9% (24-48) Monocytes (%) (Auto) 8% (0-9) Eosinophils (%) (Auto) 0% (0-3) Basophils (%) (Auto) 0% (0-3) Neutrophils # (Auto) 14.7x10^3uL (1.8-7.7) Lymphocytes # (Auto) 1.6x10^3/uL (1.0-4.8) Monocytes # (Auto) 1.4x10^3/uL (0.0-1.1) Eosinophils # (Auto) 0.1x10^3/uL (0.0-0.7) Basophils # (Auto) 0.1x10^3/uL (0.0-0.2) Segmented Neutrophils % 87% (35-66) Lymphocytes % 8% (24-48) Atypical Lymphocytes % (Manual) 2% (0-0) Monocytes % 2% (0-10) Eosinophils % 1% (0-5) Platelet Estimate Adequate (ADEQUATE) Anisocytosis Slight Microcytosis Slight Sodium Level 154mmol/L (136-145) Potassium Level 3.9mmol/L (3.5-5.1) Chloride Level 113mmol/L (98-107) Carbon Dioxide Level 30mmol/L (21-32) Anion Gap 11 (6-14) Blood Urea Nitrogen 56mg/dL (8-26) Creatinine 2.9mg/dL (0.7-1.3) Estimated GFR (Cockcroft-Gault) 21.0 Glucose Level 133mg/dL (70-99) Calcium Level 9.6mg/dL (8.5-10.1) Laboratory Tests Test 05/17/16 00:02 White Blood Count 17.9x10^3/uL (4.0-11.0) Red Blood Count 5.37x10^6/uL (4.30-5.70) Hemoglobin 14.0g/dL (13.0-17.5) Hematocrit 44.6% (39.0-53.0) Mean Corpuscular Volume 83fL (79-100) Mean Corpuscular Hemoglobin 26pg (25-35) Mean Corpuscular Hemoglobin Concent 31g/dL (31-37) Red Cell Distribution Width 19.3% (11.5-14.5) Platelet Count 193x10^3/uL (140-400) Neutrophils (%) (Auto) 82% (31-73) Lymphocytes (%) (Auto) 9% (24-48) Monocytes (%) (Auto) 8% (0-9) Eosinophils (%) (Auto) 0% (0-3) Basophils (%) (Auto) 0% (0-3) Neutrophils # (Auto) 14.7x10^3uL (1.8-7.7) Lymphocytes # (Auto) 1.6x10^3/uL (1.0-4.8) Monocytes # (Auto) 1.4x10^3/uL (0.0-1.1) Eosinophils # (Auto) 0.1x10^3/uL (0.0-0.7) Basophils # (Auto) 0.1x10^3/uL (0.0-0.2) Segmented Neutrophils % 87% (35-66) Lymphocytes % 8% (24-48) Atypical Lymphocytes % (Manual) 2% (0-0) Monocytes % 2% (0-10) Eosinophils % 1% (0-5) Platelet Estimate Adequate (ADEQUATE) Anisocytosis Slight Microcytosis Slight Sodium Level 154mmol/L (136-145) Potassium Level 3.9mmol/L (3.5-5.1) Chloride Level 113mmol/L (98-107) Carbon Dioxide Level 30mmol/L (21-32) Anion Gap 11 (6-14) Blood Urea Nitrogen 56mg/dL (8-26) Creatinine 2.9mg/dL (0.7-1.3) Estimated GFR (Cockcroft-Gault) 21.0 Glucose Level 133mg/dL (70-99) Calcium Level 9.6mg/dL (8.5-10.1) Assessment/Plan Assessment/Plan Impression: Metabolic encephalopathy without evidence of stroke, seizures, or intracranial infection. Perhaps this was all medication side effects, particularly Benadryl. However, I find evidence of prior dementia in terms of the bilateral grasp reflexes. He may have been compensating at home, but under stress of illness, here in the hospital, dementia features have been exposed. Recommendations: I ordered a brain MRI Additional studies depending on the results and his course Continue observation off of offending medications. I discussed my findings with the family. Thank you for letting me help with the patient's care. OSBALDO LANDRUM MD May 17, 2016 13:40
[2016-05-17 15:34] VITALS: BP 142/90
--- NOTE | 2016-05-17 15:44 | RAD ---
Exam performed: MRI brain without contrast. History: Altered mental status. Date of service: 05/17/16. Comparison: None available Technique: Routine multiplanar and multi pulse sequence imaging of the brain is performed without IV contrast. Findings: There are no areas of restricted diffusion to suggest an area of acute ischemia. Mild prominence of cortical sulci and ventricular system is noted consistent with mild age related atrophy. There are areas of increased signal in both periventricular and subcortical deep white matter suggesting small vessel ischemic changes. Normal leggett-white differentiation is maintained. There is no extra axial fluid collection, parenchymal hemorrhage, mass or acute infarct. Sagittal images demonstrate normal midline structures without evidence of tonsillar ectopia. Visualized orbits, paranasal sinuses and the mastoid air cells are clear. Impression: 1. No acute intracranial process detected. 2. Age-related atrophy and bilateral periventricular small vessel ischemic changes are noted.
[2016-05-17 19:18] VITALS: BP 123/86
[2016-05-17 23:37] VITALS: BP 138/86
[2016-05-18] MEDS: IV NORMAL SALINE 1000ML BAG 1,000 ML IV SCH (01:01)
[2016-05-18 03:00] VITALS: BP 131/92
[2016-05-18 06:05] LABS: BASO # 0.1 x10^3/uL (0.0-0.2); BASO % 1 % (0-3); EOS % 3 % (0-3); HEMATOCRIT 41.1 % (39.0-53.0); HEMOGLOBIN 12.8 g/dL (13.0-17.5); LYMPH # 1.6 x10^3/uL (1.0-4.8); LYMPH % 12 % (24-48); MEAN CORPUSCULAR HEMOGLOBIN 26 pg (25-35); MEAN CORPUSCULAR HGB CONC 31 g/dL (31-37); MEAN CORPUSCULAR VOLUME 84 fL (79-100); MONO % 9 % (0-9); NEUT % 75 % (31-73); PLATELET COUNT 147 x10^3/uL (140-400); RED BLOOD COUNT 4.91 x10^6/uL (4.30-5.70); RED CELL DISTRIBUTION WIDTH 19.5 % (11.5-14.5); WHITE BLOOD COUNT 13.1 x10^3/uL (4.0-11.0)
[2016-05-18 06:20] LABS: CALCIUM 8.6 mg/dL (8.5-10.1); CREATININE 1.7 mg/dL (0.7-1.3); POTASSIUM 3.9 mmol/L (3.5-5.1)
[2016-05-18 06:55] VITALS: BP 134/94
[2016-05-18] MEDS: IPRATRPIUM/ALBUTEROL 0.5/2.5MG 3 ML NEBU. NEB SCH ×4 (07:50→20:38)
[2016-05-18] MEDS: AMLODIPINE BESYLATE 10 MG TABLET PO SCH (08:37)
[2016-05-18] MEDS: ASPIRIN 81 MG TAB.CHEW PO SCH (08:37)
[2016-05-18] MEDS: ALLOPURINOL 100 MG TABLET. PO SCH (08:37)
[2016-05-18] MEDS: LOSARTAN POTASSIUM 50 MG TABLET. PO SCH (08:37)
[2016-05-18] MEDS: FAMOTIDINE 20 MG TABLET. PO SCH ×2 (08:38→20:47)
[2016-05-18 10:47] VITALS: BP 136/93
--- NOTE | 2016-05-18 11:07 | PDOC ---
GENERAL General: vss and afebrile. resting quietly. exam stable. wbc decreased to 13K. creatinine decreased to 1.7 and sodium decreased to 152. will continue low dose iv fluids and follow lab. neuro help appreciated and MRI head negative. Problems: VITAL SIGNS Vital Signs: Vital Signs Date Time Temp Pulse Resp B/P Pulse Ox O2 Delivery O2 Flow Rate FiO2 05/18/16 10:47 97.6 85 20 136/93 95 Room Air 97.6 I & O I & O Intake and Output 05/18/16 07:00 Intake Total 540 ml Output Total 131 ml Balance 409 ml Intake Oral 540 ml Output Urine Total 131 ml # Voids 1 # Bowel Movements 1 ALLERGIES Allergies: Allergies Coded Allergies Type Severity Reaction Last Updated Verified No Known Drug Allergies 02/05/15 No MEDS Medications: Current Medications Medications (Trade) Dose Ordered Sig/Chriss Start Time Stop Time Status Last Admin Dose Admin Acetaminophen (Tylenol) 650 mg PRN Q4HRS 05/17/16 09:45 Acetaminophen/ Hydrocodone Bitart (Lortab 5/325) 1 tab PRN Q6HRS PRN 05/17/16 09:45 Albuterol/ Ipratropium (Duoneb) 3 ml STK-MED ONCE 05/17/16 10:47 05/17/16 10:48 DC 05/17/16 10:54 3 ML Allopurinol (Zyloprim) 100 mg DAILY 05/17/16 10:30 05/18/16 08:37 100 MG Amlodipine Besylate (Norvasc) 10 mg DAILY 05/17/16 10:30 05/18/16 08:37 10 MG Aspirin (Children'S Aspirin) 81 mg DAILY 05/17/16 10:30 05/18/16 08:37 81 MG Diphenhydramine HCl (Benadryl) 25 mg QID 05/17/16 13:00 05/17/16 13:00 DC Famotidine (Pepcid) 20 mg BID 05/17/16 10:30 05/18/16 08:38 20 MG Losartan Potassium (Cozaar) 50 mg DAILY 05/17/16 10:30 05/18/16 08:37 50 MG Ondansetron HCl 4 mg 4 mg PRN Q8HRS PRN 05/17/16 01:45 05/18/16 01:44 DC Sodium Chloride (Iv Sodium Chloride 0.9% 500ml Bag) 500 ml @ 500 mls/hr 1X ONCE 05/17/16 01:15 05/17/16 02:14 DC 05/17/16 01:25 500 MLS/HR Sodium Chloride (Iv Sodium Chloride 0.9% 1000ml Bag) 1,000 ml @ 150 mls/hr Q6H40M 05/17/16 01:45 05/18/16 01:44 DC 05/18/16 01:01 150 MLS/HR LAB Lab: Laboratory Tests Test 05/18/16 05:05 White Blood Count 13.1x10^3/uL (4.0-11.0) Red Blood Count 4.91x10^6/uL (4.30-5.70) Hemoglobin 12.8g/dL (13.0-17.5) Hematocrit 41.1% (39.0-53.0) Mean Corpuscular Volume 84fL (79-100) Mean Corpuscular Hemoglobin 26pg (25-35) Mean Corpuscular Hemoglobin Concent 31g/dL (31-37) Red Cell Distribution Width 19.5% (11.5-14.5) Platelet Count 147x10^3/uL (140-400) Neutrophils (%) (Auto) 75% (31-73) Lymphocytes (%) (Auto) 12% (24-48) Monocytes (%) (Auto) 9% (0-9) Eosinophils (%) (Auto) 3% (0-3) Basophils (%) (Auto) 1% (0-3) Neutrophils # (Auto) 9.9x10^3uL (1.8-7.7) Lymphocytes # (Auto) 1.6x10^3/uL (1.0-4.8) Monocytes # (Auto) 1.1x10^3/uL (0.0-1.1) Eosinophils # (Auto) 0.4x10^3/uL (0.0-0.7) Basophils # (Auto) 0.1x10^3/uL (0.0-0.2) Sodium Level 152mmol/L (136-145) Potassium Level 3.9mmol/L (3.5-5.1) Chloride Level 115mmol/L (98-107) Carbon Dioxide Level 26mmol/L (21-32) Anion Gap 11 (6-14) Blood Urea Nitrogen 42mg/dL (8-26) Creatinine 1.7mg/dL (0.7-1.3) Estimated GFR (Cockcroft-Gault) 39.0 Glucose Level 82mg/dL (70-99) Calcium Level 8.6mg/dL (8.5-10.1) MAUREEN VARELA MD May 18, 2016 11:07
[2016-05-18] MEDS: IV 1/2 NORMAL SALINE 1,000 ML IV SCH ×2 (11:53→22:27)
[2016-05-18 12:02] LABS: BILIRUBIN,URINE NEGATIVE (NEG); GLUCOSE,URINE NEGATIVE (NEG); NITRITE,URINE NEGATIVE (NEG); PROTEIN,URINE 30 mg/dL (NEG-TRACE); UROBILINOGEN,URINE 0.2 mg/dL (0.2 mg/dL)
[2016-05-18 12:16] LABS: BACTERIA,URINE FEW /HPF (0-FEW); RBC,URINE OCC /HPF (0-2); WBC,URINE 20-40 /HPF (0-4); YEAST,URINE PRESENT /HPF
--- NOTE | 2016-05-18 13:12 | PDOC ---
PROGRESS NOTES Assessment Problems Medical Problems: (1) Acute renal failure Status: Acute Metabolic encephalopathy without evidence of stroke, seizures, or intracranial infection. Perhaps this was all medication side effects, particularly Benadryl. Suspect prior dementia MRI brain negative for new stroke Plan Additional laboratory studies regarding dementia Reassured patient that his brain MRI is normal Return to custodial unit Reevaluate in my clinic in 4-6 weeks, as it is not appropriate to make a diagnosis of dementia in the setting of acute medical illness. Subjective No complaints Objective Vital Signs Date Time Temp Pulse Resp B/P Pulse Ox O2 Delivery O2 Flow Rate FiO2 05/18/16 11:33 95 Room Air 05/18/16 10:47 97.6 85 20 136/93 97.6 Intake and Output 05/18/16 07:00 Intake Total 540 ml Output Total 131 ml Balance 409 ml Intake Oral 540 ml Output Urine Total 131 ml # Voids 1 # Bowel Movements 1 PHYSICAL EXAM Alert. Oriented to person only. PERRL. EOMI. CN: no focal findings. Muscle tone: normal. Muscle strength: 4/5 DTR: 2+. There are bilateral grasp reflexes Plantar reflex: Flexor Gait: not examined in bed. Sensory exam: no abnormal findings. No cerebellar signs elicited. Review of Relevant I have reviewed the following items geno (where applicable) has been applied. Labs Laboratory Tests Test 05/17/16 00:02 05/17/16 05:30 05/18/16 05:05 05/18/16 10:55 White Blood Count 17.9x10^3/uL (4.0-11.0) 13.1x10^3/uL (4.0-11.0) Red Blood Count 5.37x10^6/uL (4.30-5.70) 4.91x10^6/uL (4.30-5.70) Hemoglobin 14.0g/dL (13.0-17.5) 12.8g/dL (13.0-17.5) Hematocrit 44.6% (39.0-53.0) 41.1% (39.0-53.0) Mean Corpuscular Volume 83fL (79-100) 84fL (79-100) Mean Corpuscular Hemoglobin 26pg (25-35) 26pg (25-35) Mean Corpuscular Hemoglobin Concent 31g/dL (31-37) 31g/dL (31-37) Red Cell Distribution Width 19.3% (11.5-14.5) 19.5% (11.5-14.5) Platelet Count 193x10^3/uL (140-400) 147x10^3/uL (140-400) Neutrophils (%) (Auto) 82% (31-73) 75% (31-73) Lymphocytes (%) (Auto) 9% (24-48) 12% (24-48) Monocytes (%) (Auto) 8% (0-9) 9% (0-9) Eosinophils (%) (Auto) 0% (0-3) 3% (0-3) Basophils (%) (Auto) 0% (0-3) 1% (0-3) Neutrophils # (Auto) 14.7x10^3uL (1.8-7.7) 9.9x10^3uL (1.8-7.7) Lymphocytes # (Auto) 1.6x10^3/uL (1.0-4.8) 1.6x10^3/uL (1.0-4.8) Monocytes # (Auto) 1.4x10^3/uL (0.0-1.1) 1.1x10^3/uL (0.0-1.1) Eosinophils # (Auto) 0.1x10^3/uL (0.0-0.7) 0.4x10^3/uL (0.0-0.7) Basophils # (Auto) 0.1x10^3/uL (0.0-0.2) 0.1x10^3/uL (0.0-0.2) Segmented Neutrophils % 87% (35-66) Lymphocytes % 8% (24-48) Atypical Lymphocytes % (Manual) 2% (0-0) Monocytes % 2% (0-10) Eosinophils % 1% (0-5) Platelet Estimate Adequate (ADEQUATE) Anisocytosis Slight Microcytosis Slight Sodium Level 154mmol/L (136-145) 152mmol/L (136-145) Potassium Level 3.9mmol/L (3.5-5.1) 3.9mmol/L (3.5-5.1) Chloride Level 113mmol/L (98-107) 115mmol/L (98-107) Carbon Dioxide Level 30mmol/L (21-32) 26mmol/L (21-32) Anion Gap 11 (6-14) 11 (6-14) Blood Urea Nitrogen 56mg/dL (8-26) 42mg/dL (8-26) Creatinine 2.9mg/dL (0.7-1.3) 1.7mg/dL (0.7-1.3) Estimated GFR (Cockcroft-Gault) 21.0 39.0 Glucose Level 133mg/dL (70-99) 82mg/dL (70-99) Calcium Level 9.6mg/dL (8.5-10.1) 8.6mg/dL (8.5-10.1) Nasal Screen MRSA (PCR) Negative (Negative) Urine Collection Type Unknown Urine Color Yellow Urine Clarity Clear Urine pH 6.0 Urine Specific [place] 1.015 Urine Protein 30mg/dL (NEG-TRACE) Urine Glucose (UA) Negativemg/dL (NEG) Urine Ketones (Stick) Negativemg/dL (NEG) Urine Blood Small (NEG) Urine Nitrite Negative (NEG) Urine Bilirubin Negative (NEG) Urine Urobilinogen Dipstick 0.2mg/dL (0.2 mg/dL) Urine Leukocyte Esterase Small (NEG) Urine RBC Occ/HPF (0-2) Urine WBC 20-40/HPF (0-4) Urine Squamous Epithelial Cells None/LPF Urine Bacteria Few/HPF (0-FEW) Urine Hyaline Casts Occasional/HPF Urine Yeast Present/HPF Laboratory Tests Test 05/18/16 05:05 05/18/16 10:55 White Blood Count 13.1x10^3/uL (4.0-11.0) Red Blood Count 4.91x10^6/uL (4.30-5.70) Hemoglobin 12.8g/dL (13.0-17.5) Hematocrit 41.1% (39.0-53.0) Mean Corpuscular Volume 84fL (79-100) Mean Corpuscular Hemoglobin 26pg (25-35) Mean Corpuscular Hemoglobin Concent 31g/dL (31-37) Red Cell Distribution Width 19.5% (11.5-14.5) Platelet Count 147x10^3/uL (140-400) Neutrophils (%) (Auto) 75% (31-73) Lymphocytes (%) (Auto) 12% (24-48) Monocytes (%) (Auto) 9% (0-9) Eosinophils (%) (Auto) 3% (0-3) Basophils (%) (Auto) 1% (0-3) Neutrophils # (Auto) 9.9x10^3uL (1.8-7.7) Lymphocytes # (Auto) 1.6x10^3/uL (1.0-4.8) Monocytes # (Auto) 1.1x10^3/uL (0.0-1.1) Eosinophils # (Auto) 0.4x10^3/uL (0.0-0.7) Basophils # (Auto) 0.1x10^3/uL (0.0-0.2) Sodium Level 152mmol/L (136-145) Potassium Level 3.9mmol/L (3.5-5.1) Chloride Level 115mmol/L (98-107) Carbon Dioxide Level 26mmol/L (21-32) Anion Gap 11 (6-14) Blood Urea Nitrogen 42mg/dL (8-26) Creatinine 1.7mg/dL (0.7-1.3) Estimated GFR (Cockcroft-Gault) 39.0 Glucose Level 82mg/dL (70-99) Calcium Level 8.6mg/dL (8.5-10.1) Urine Collection Type Unknown Urine Color Yellow Urine Clarity Clear Urine pH 6.0 Urine Specific [place] 1.015 Urine Protein 30mg/dL (NEG-TRACE) Urine Glucose (UA) Negativemg/dL (NEG) Urine Ketones (Stick) Negativemg/dL (NEG) Urine Blood Small (NEG) Urine Nitrite Negative (NEG) Urine Bilirubin Negative (NEG) Urine Urobilinogen Dipstick 0.2mg/dL (0.2 mg/dL) Urine Leukocyte Esterase Small (NEG) Urine RBC Occ/HPF (0-2) Urine WBC 20-40/HPF (0-4) Urine Squamous Epithelial Cells None/LPF Urine Bacteria Few/HPF (0-FEW) Urine Hyaline Casts Occasional/HPF Urine Yeast Present/HPF Medications Current Medications Sodium Chloride (Iv Sodium Chloride 0.9% 500ml Bag) 500 ml @ 500 mls/hr 1X ONCE IV Last administered on 05/17/16 01:25; Start 05/17/16 at 01:15; Stop 01/23 at 02:14; Status DC Ondansetron HCl 4 mg 4 mg PRN Q8HRS PRN IV NAUSEA/VOMITING; Start 05/17/16 at 01:45; Stop 05/18/16 at 01:44; Status DC Sodium Chloride (Iv Sodium Chloride 0.9% 1000ml Bag) 1,000 ml @ 150 mls/hr Q6H40M IV Last administered on 05/18/16 01:01; Start 05/17/16 at 01:45; Stop 05/18/16 at 01:44; Status DC Acetaminophen (Tylenol) 650 mg PRN Q4HRS PRN PO FEVER; Start 05/17/16 at 01:45 ; Stop 05/17/16 at 17:06; Status DC Acetaminophen (Tylenol) 650 mg PRN Q4HRS PO ; Start 05/17/16 at 09:45 Allopurinol (Zyloprim) 100 mg DAILY PO Last administered on 05/18/16 08:37; Start 05/17/16 at 10:30 Amlodipine Besylate (Norvasc) 10 mg DAILY PO Last administered on 05/18/16 08: 37; Start 05/17/16 at 10:30 Aspirin (Children'S Aspirin) 81 mg DAILY PO Last administered on 05/18/16 08: 37; Start 05/17/16 at 10:30 Diphenhydramine HCl (Benadryl) 25 mg QID PO ; Start 05/17/16 at 13:00; Stop 01/23 at 13:00; Status DC Acetaminophen/ Hydrocodone Bitart (Lortab 5/325) 1 tab PRN Q6HRS PRN PO PAIN; Start 05/17/16 at 09:45 Albuterol/ Ipratropium (Duoneb) 3 ml QID NEB Last administered on 05/18/16 11: 32; Start 05/17/16 at 13:00 Losartan Potassium (Cozaar) 50 mg DAILY PO Last administered on 05/18/16 08:37 ; Start 05/17/16 at 10:30 Famotidine (Pepcid) 20 mg BID PO Last administered on 05/18/16 08:38; Start at 10:30 Albuterol/ Ipratropium 3 ml 3 ml STK-MED ONCE .ROUTE Last administered on 10:54; Start 05/17/16 at 10:47; Stop 05/17/16 at 10:48; Status DC Sodium Chloride (Iv Sodium Chloride 0.45%) 1,000 ml @ 75 mls/hr [id number] IV Last administered on 05/18/16 11:53; Start 05/18/16 at 11:15 Active Scripts Active Clindamycin Hcl 300 Mg Capsule 300 Mg PO QID 7 Days [place] 5-325 Tablet (Acetaminophen/Hydrocodone Bitart) 1 Each Tablet 1 Tab PO PRN Q6HRS PRN Reported Zinc Oxide 30 Gm Oint...g. 30 Gm TP BID Cimetidine 400 Mg Tablet 400 Mg PO BID Pro-Stat Awc Liquid Packet (Amino Acids/Protein Hydrolys) 30 Ml Liquid.pkt 30 Ml PO DAILY Polyvinyl Alcohol 15 Ml Drops 15 Ml OP PRN Q15MIN PRN Nystatin 15 Gm Powder 1 Nishant TP BID Daily Vitamin Formula-Minerals (Multivitamin With Minerals) 1 Each Tablet 1 Each PO Miconazole Nitrate 30 Gm Cream..g. 30 Gm TP BID Losartan Potassium 50 Mg Tablet 50 Mg PO DAILY Levofloxacin 500 Mg Tablet 1 Tab PO DAILY Fluconazole 200 Mg Tablet 1 Tab PO BID Duoneb 0.5-3(2.5) Mg/3 Ml (Albuterol/Ipratropium) 3 Ml Ampul.neb 3 Ml NEB QID Cephalexin 500 Mg Capsule 1 Cap PO BID Biotene (Saliva Substitution Combo No.9) 1,000 Ml Mouthwash 1,000 Ml MM QID Benadryl (Diphenhydramine Hcl) 25 Mg Capsule 2 Cap PO QID Amlodipine Besylate 10 Mg Tablet 10 Mg PO DAILY Tylenol (Acetaminophen) 325 Mg Tablet 1 Tab PO PRN Q4HRS Aspirin 81 Mg Tab.chew 81 Mg PO DAILY Allopurinol 100 Mg Tablet 100 Mg PO DAILY Vitals/I & O Vital Sign - Last 24 Hours 05/17/16 05/17/16 05/17/16 05/17/16 15:34 19:18 19:18 20:00 Temp 98.4 98.3 98.4 98.3 Pulse 74 64 Resp 18 18 B/P 142/90 123/86 Pulse Ox 97 99 98 O2 Delivery Room Air Room Air Room Air Room Air 05/17/16 05/18/16 05/18/16 05/18/16 23:37 03:00 06:55 07:51 Temp 97.6 97.7 98.5 97.6 97.7 98.5 Pulse 83 78 74 Resp 18 18 20 B/P 138/86 131/92 134/94 Pulse Ox 98 98 96 96 O2 Delivery Room Air Room Air Room Air Room Air 05/18/16 05/18/16 05/18/16 05/18/16 08:00 08:37 08:37 10:47 Temp 97.6 97.6 Pulse 74 74 85 Resp 20 B/P 134/94 134/94 136/93 Pulse Ox 95 O2 Delivery Room Air Room Air 05/18/16 11:33 Pulse Ox 95 O2 Delivery Room Air Intake and Output 05/17/16 05/17/16 05/18/16 15:00 23:00 07:00 Intake Total 180 ml 360 ml Output Total 130 ml 1 ml Balance 180 ml 230 ml -1 ml Images Brain MRI: 1. No acute intracranial process detected. 2. Age-related atrophy and bilateral periventricular small vessel ischemic changes are noted. OSBALDO LANDRUM MD May 18, 2016 13:12
[2016-05-18 15:30] VITALS: BP 130/84
[2016-05-18 19:05] VITALS: BP 143/91
[2016-05-18 22:55] VITALS: BP 135/88
[2016-05-19 03:52] VITALS: BP 148/104
[2016-05-19 04:00] LABS: BASO # 0.1 x10^3/uL (0.0-0.2); BASO % 1 % (0-3); EOS % 6 % (0-3); HEMATOCRIT 39.7 % (39.0-53.0); HEMOGLOBIN 12.8 g/dL (13.0-17.5); LYMPH # 1.3 x10^3/uL (1.0-4.8); LYMPH % 10 % (24-48); MEAN CORPUSCULAR HEMOGLOBIN 26 pg (25-35); MEAN CORPUSCULAR HGB CONC 32 g/dL (31-37); MEAN CORPUSCULAR VOLUME 82 fL (79-100); MONO % 9 % (0-9); NEUT % 74 % (31-73); PLATELET COUNT 167 x10^3/uL (140-400); RED BLOOD COUNT 4.86 x10^6/uL (4.30-5.70); RED CELL DISTRIBUTION WIDTH 19.6 % (11.5-14.5); WHITE BLOOD COUNT 12.4 x10^3/uL (4.0-11.0)
[2016-05-19 04:13] LABS: CALCIUM 8.4 mg/dL (8.5-10.1); CREATININE 1.6 mg/dL (0.7-1.3); GFR 41.8; POTASSIUM 3.8 mmol/L (3.5-5.1)
[2016-05-19 07:05] VITALS: BP 142/87
[2016-05-19] MEDS: IPRATRPIUM/ALBUTEROL 0.5/2.5MG 3 ML NEBU. NEB SCH ×4 (07:05→20:35)
--- NOTE | 2016-05-19 08:20 | PDOC ---
Provider Note Provider Note feels good, no temp, creat close to baseline 1.5, Na+ lower also- could return to [facility] if available GARETH DODD MD May 19, 2016 08:20
--- NOTE | 2016-05-19 08:21 | DISCH ---
DISCHARGE FINAL DIAGNOSIS Problems Medical Problems: (1) Acute renal failure Status: Acute CONDITION ON DISCHARGE: Stable SNF STAY <30 DAYS: Yes POST DISCHARGE ORDERS ACTIVITY ORDERS: Activity as tolerated WEIGHT BEARING STATUS: As tolerated DIET AFTER DISCHARGE: Cardiac GARETH DODD MD May 19, 2016 08:21
[2016-05-19] MEDS: LOSARTAN POTASSIUM 50 MG TABLET. PO SCH (08:38)
[2016-05-19] MEDS: ASPIRIN 81 MG TAB.CHEW PO SCH (08:38)
[2016-05-19] MEDS: FAMOTIDINE 20 MG TABLET. PO SCH ×2 (08:38→21:18)
[2016-05-19] MEDS: ALLOPURINOL 100 MG TABLET. PO SCH (08:38)
[2016-05-19] MEDS: AMLODIPINE BESYLATE 10 MG TABLET PO SCH (08:39)
[2016-05-19 10:32] LABS: FOLATE 14.23 ng/ml (3.2-20.0)
[2016-05-19 10:45] VITALS: BP 111/74
--- NOTE | 2016-05-19 10:52 | PDOC ---
PROGRESS NOTES Assessment Problems Medical Problems: (1) Acute renal failure Status: Acute Metabolic encephalopathy without evidence of stroke, seizures, or intracranial infection. Perhaps this was all medication side effects, particularly Benadryl. He is better Suspect prior dementia MRI brain negative for new stroke Plan Awaiting additional laboratory studies regarding dementia [facility] Reevaluate in my clinic in 4-6 weeks, as it is not appropriate to make a diagnosis of dementia in the setting of acute medical illness. Subjective No complaints Objective Vital Signs Date Time Temp Pulse Resp B/P Pulse Ox O2 Delivery O2 Flow Rate FiO2 05/19/16 08:39 84 142/87 05/19/16 08:00 Room Air 05/19/16 07:06 96 05/19/16 07:05 98.1 16 98.1 Intake and Output 05/19/16 07:00 Intake Total 620 ml Output Total 1100 ml Balance -480 ml Intake Oral 620 ml Output Urine Total 1100 ml # Voids 5 PHYSICAL EXAM Alert. Oriented to person, place, month year PERRL. EOMI. CN: no focal findings. Muscle tone: normal. Muscle strength: 4/5 DTR: 2+. There are bilateral grasp reflexes Plantar reflex: Flexor Gait: not examined in bed. Sensory exam: no abnormal findings. No cerebellar signs elicited. Review of Relevant I have reviewed the following items geno (where applicable) has been applied. Labs Laboratory Tests Test 05/18/16 05:05 05/18/16 10:55 05/19/16 03:25 White Blood Count 13.1x10^3/uL (4.0-11.0) 12.4x10^3/uL (4.0-11.0) Red Blood Count 4.91x10^6/uL (4.30-5.70) 4.86x10^6/uL (4.30-5.70) Hemoglobin 12.8g/dL (13.0-17.5) 12.8g/dL (13.0-17.5) Hematocrit 41.1% (39.0-53.0) 39.7% (39.0-53.0) Mean Corpuscular Volume 84fL (79-100) 82fL (79-100) Mean Corpuscular Hemoglobin 26pg (25-35) 26pg (25-35) Mean Corpuscular Hemoglobin Concent 31g/dL (31-37) 32g/dL (31-37) Red Cell Distribution Width 19.5% (11.5-14.5) 19.6% (11.5-14.5) Platelet Count 147x10^3/uL (140-400) 167x10^3/uL (140-400) Neutrophils (%) (Auto) 75% (31-73) 74% (31-73) Lymphocytes (%) (Auto) 12% (24-48) 10% (24-48) Monocytes (%) (Auto) 9% (0-9) 9% (0-9) Eosinophils (%) (Auto) 3% (0-3) 6% (0-3) Basophils (%) (Auto) 1% (0-3) 1% (0-3) Neutrophils # (Auto) 9.9x10^3uL (1.8-7.7) 9.2x10^3uL (1.8-7.7) Lymphocytes # (Auto) 1.6x10^3/uL (1.0-4.8) 1.3x10^3/uL (1.0-4.8) Monocytes # (Auto) 1.1x10^3/uL (0.0-1.1) 1.1x10^3/uL (0.0-1.1) Eosinophils # (Auto) 0.4x10^3/uL (0.0-0.7) 0.7x10^3/uL (0.0-0.7) Basophils # (Auto) 0.1x10^3/uL (0.0-0.2) 0.1x10^3/uL (0.0-0.2) Sodium Level 152mmol/L (136-145) 149mmol/L (136-145) Potassium Level 3.9mmol/L (3.5-5.1) 3.8mmol/L (3.5-5.1) Chloride Level 115mmol/L (98-107) 113mmol/L (98-107) Carbon Dioxide Level 26mmol/L (21-32) 28mmol/L (21-32) Anion Gap 11 (6-14) 8 (6-14) Blood Urea Nitrogen 42mg/dL (8-26) 33mg/dL (8-26) Creatinine 1.7mg/dL (0.7-1.3) 1.6mg/dL (0.7-1.3) Estimated GFR (Cockcroft-Gault) 39.0 41.8 Glucose Level 82mg/dL (70-99) 84mg/dL (70-99) Calcium Level 8.6mg/dL (8.5-10.1) 8.4mg/dL (8.5-10.1) Urine Collection Type Unknown Urine Color Yellow Urine Clarity Clear Urine pH 6.0 Urine Specific Williams 1.015 Urine Protein 30mg/dL (NEG-TRACE) Urine Glucose (UA) Negativemg/dL (NEG) Urine Ketones (Stick) Negativemg/dL (NEG) Urine Blood Small (NEG) Urine Nitrite Negative (NEG) Urine Bilirubin Negative (NEG) Urine Urobilinogen Dipstick 0.2mg/dL (0.2 mg/dL) Urine Leukocyte Esterase Small (NEG) Urine RBC Occ/HPF (0-2) Urine WBC 20-40/HPF (0-4) Urine Squamous Epithelial Cells None/LPF Urine Bacteria Few/HPF (0-FEW) Urine Hyaline Casts Occasional/HPF Urine Yeast Present/HPF Erythrocyte Sedimentation Rate 10 (0-15) Thyroid Stimulating Hormone (TSH) 3.457uIU/mL (0.358-3.74) Laboratory Tests Test 05/18/16 10:55 05/19/16 03:25 Urine Collection Type Unknown Urine Color Yellow Urine Clarity Clear Urine pH 6.0 Urine Specific Williams 1.015 Urine Protein 30mg/dL (NEG-TRACE) Urine Glucose (UA) Negativemg/dL (NEG) Urine Ketones (Stick) Negativemg/dL (NEG) Urine Blood Small (NEG) Urine Nitrite Negative (NEG) Urine Bilirubin Negative (NEG) Urine Urobilinogen Dipstick 0.2mg/dL (0.2 mg/dL) Urine Leukocyte Esterase Small (NEG) Urine RBC Occ/HPF (0-2) Urine WBC 20-40/HPF (0-4) Urine Squamous Epithelial Cells None/LPF Urine Bacteria Few/HPF (0-FEW) Urine Hyaline Casts Occasional/HPF Urine Yeast Present/HPF White Blood Count 12.4x10^3/uL (4.0-11.0) Red Blood Count 4.86x10^6/uL (4.30-5.70) Hemoglobin 12.8g/dL (13.0-17.5) Hematocrit 39.7% (39.0-53.0) Mean Corpuscular Volume 82fL (79-100) Mean Corpuscular Hemoglobin 26pg (25-35) Mean Corpuscular Hemoglobin Concent 32g/dL (31-37) Red Cell Distribution Width 19.6% (11.5-14.5) Platelet Count 167x10^3/uL (140-400) Neutrophils (%) (Auto) 74% (31-73) Lymphocytes (%) (Auto) 10% (24-48) Monocytes (%) (Auto) 9% (0-9) Eosinophils (%) (Auto) 6% (0-3) Basophils (%) (Auto) 1% (0-3) Neutrophils # (Auto) 9.2x10^3uL (1.8-7.7) Lymphocytes # (Auto) 1.3x10^3/uL (1.0-4.8) Monocytes # (Auto) 1.1x10^3/uL (0.0-1.1) Eosinophils # (Auto) 0.7x10^3/uL (0.0-0.7) Basophils # (Auto) 0.1x10^3/uL (0.0-0.2) Erythrocyte Sedimentation Rate 10 (0-15) Sodium Level 149mmol/L (136-145) Potassium Level 3.8mmol/L (3.5-5.1) Chloride Level 113mmol/L (98-107) Carbon Dioxide Level 28mmol/L (21-32) Anion Gap 8 (6-14) Blood Urea Nitrogen 33mg/dL (8-26) Creatinine 1.6mg/dL (0.7-1.3) Estimated GFR (Cockcroft-Gault) 41.8 Glucose Level 84mg/dL (70-99) Calcium Level 8.4mg/dL (8.5-10.1) Thyroid Stimulating Hormone (TSH) 3.457uIU/mL (0.358-3.74) Medications Current Medications Sodium Chloride (Iv Sodium Chloride 0.9% 500ml Bag) 500 ml @ 500 mls/hr 1X ONCE IV Last administered on 05/17/16t 01:25; Start 3/11/17 at 01:15; Stop 01/23 at 02:14; Status DC Ondansetron HCl 4 mg 4 mg PRN Q8HRS PRN IV NAUSEA/VOMITING; Start 05/17/16 at 01:45; Stop 05/18/16 at 01:44; Status DC Sodium Chloride (Iv Sodium Chloride 0.9% 1000ml Bag) 1,000 ml @ 150 mls/hr Q6H40M IV Last administered on 05/18/16 01:01; Start 05/17/16 at 01:45; Stop 05/18/16 at 01:44; Status DC Acetaminophen (Tylenol) 650 mg PRN Q4HRS PRN PO FEVER; Start 05/17/16 at 01:45 ; Stop 05/17/16 at 17:06; Status DC Acetaminophen (Tylenol) 650 mg PRN Q4HRS PO ; Start 05/17/16 at 09:45 Allopurinol (Zyloprim) 100 mg DAILY PO Last administered on 05/19/16 08:38; Start 05/17/16 at 10:30 Amlodipine Besylate (Norvasc) 10 mg DAILY PO Last administered on 05/19/16 08: 39; Start 05/17/16 at 10:30 Aspirin (Children'S Aspirin) 81 mg DAILY PO Last administered on 05/19/16 08: 38; Start 05/17/16 at 10:30 Diphenhydramine HCl (Benadryl) 25 mg QID PO ; Start 05/17/16 at 13:00; Stop 01/23 at 13:00; Status DC Acetaminophen/ Hydrocodone Bitart (Lortab 5/325) 1 tab PRN Q6HRS PRN PO PAIN; Start 05/17/16 at 09:45 Albuterol/ Ipratropium (Duoneb) 3 ml QID NEB Last administered on 05/19/16 07: 05; Start 05/17/16 at 13:00 Losartan Potassium (Cozaar) 50 mg DAILY PO Last administered on 05/19/16 08:38 ; Start 05/17/16 at 10:30 Famotidine (Pepcid) 20 mg BID PO Last administered on 05/19/16 08:38; Start at 10:30 Albuterol/ Ipratropium 3 ml 3 ml STK-MED ONCE .ROUTE Last administered on 10:54; Start 05/17/16 at 10:47; Stop 05/17/16 at 10:48; Status DC Sodium Chloride (Iv Sodium Chloride 0.45%) 1,000 ml @ 75 mls/hr [id number] IV Last administered on 05/18/16 22:27; Start 05/18/16 at 11:15; Stop 05/19/16 at 08:21; Status DC Active Scripts Active Clindamycin Hcl 300 Mg Capsule 300 Mg PO QID 7 Days [place] 5-325 Tablet (Acetaminophen/Hydrocodone Bitart) 1 Each Tablet 1 Tab PO PRN Q6HRS PRN Reported Zinc Oxide 30 Gm Oint...g. 30 Gm TP BID Cimetidine 400 Mg Tablet 400 Mg PO BID Pro-Stat Awc Liquid Packet (Amino Acids/Protein Hydrolys) 30 Ml Liquid.pkt 30 Ml PO DAILY Polyvinyl Alcohol 15 Ml Drops 15 Ml OP PRN Q15MIN PRN Nystatin 15 Gm Powder 1 Nishant TP BID Daily Vitamin Formula-Minerals (Multivitamin With Minerals) 1 Each Tablet 1 Each PO Miconazole Nitrate 30 Gm Cream..g. 30 Gm TP BID Losartan Potassium 50 Mg Tablet 50 Mg PO DAILY Levofloxacin 500 Mg Tablet 1 Tab PO DAILY Fluconazole 200 Mg Tablet 1 Tab PO BID Duoneb 0.5-3(2.5) Mg/3 Ml (Albuterol/Ipratropium) 3 Ml Ampul.neb 3 Ml NEB QID Cephalexin 500 Mg Capsule 1 Cap PO BID Biotene (Saliva Substitution Combo No.9) 1,000 Ml Mouthwash 1,000 Ml MM QID Benadryl (Diphenhydramine Hcl) 25 Mg Capsule 2 Cap PO QID Amlodipine Besylate 10 Mg Tablet 10 Mg PO DAILY Tylenol (Acetaminophen) 325 Mg Tablet 1 Tab PO PRN Q4HRS Aspirin 81 Mg Tab.chew 81 Mg PO DAILY Allopurinol 100 Mg Tablet 100 Mg PO DAILY Vitals/I & O Vital Sign - Last 24 Hours 05/18/16 05/18/16 05/18/16 05/18/16 11:33 15:03 15:30 19:05 Temp 97.7 98.7 97.7 98.7 Pulse 93 77 Resp 20 18 B/P 130/84 143/91 Pulse Ox 95 95 96 98 O2 Delivery Room Air Room Air Room Air Room Air 05/18/16 05/18/16 05/18/16 05/19/16 20:00 20:39 22:55 03:52 Temp 99.0 97.6 99.0 97.6 Pulse 81 88 Resp 20 18 B/P 135/88 148/104 Pulse Ox 93 96 98 O2 Delivery Room Air Room Air Room Air Room Air 05/19/16 05/19/16 05/19/16 05/19/16 07:05 07:06 08:00 08:38 Temp 98.1 98.1 Pulse 84 84 Resp 16 B/P 142/87 142/87 Pulse Ox 93 96 O2 Delivery Room Air Room Air Room Air 05/19/16 08:39 Pulse 84 B/P 142/87 Intake and Output 05/18/16 05/18/16 05/19/16 15:00 23:00 07:00 Intake Total 120 ml 500 ml Output Total 650 ml 450 ml Balance -530 ml 50 ml OSBALDO LANDRUM MD May 19, 2016 10:52
[2016-05-19 14:35] VITALS: BP 112/50
[2016-05-19] MEDS ORDERED: ACETAMINOPHEN 325 MG TABLET. PO PRN (16:47)
[2016-05-19 19:00] VITALS: BP 140/65
[2016-05-19 23:00] VITALS: BP 122/78
[2016-05-20 03:00] VITALS: BP 149/99
[2016-05-20] MEDS: IPRATRPIUM/ALBUTEROL 0.5/2.5MG 3 ML NEBU. NEB SCH ×4 (07:00→18:27)
[2016-05-20 07:08] VITALS: BP 132/82
--- NOTE | 2016-05-20 07:37 | PDOC ---
Provider Note Provider Note [id number] GARETH DODD MD May 20, 2016 07:37
--- NOTE | 2016-05-20 08:13 | DS ---
DATE OF DISCHARGE: 05/20/2016 HOSPITAL SUMMARY: An 81-year-old white male, who came from [facility] facility with weakness, fatigue, and confusion. He was found to have hypernatremia with a sodium of 154, BUN 56, creatinine 2.9. These came down to baseline levels with creatinine down to 1.6, sodium 149 before discharge. CBC was normal. Chemistry profile also showed a normal TSH, folic acid, B12 level and urinalysis, and the urine culture grew some yeast, but no other organisms were seen. MRI of the brain was done which was normal as well. He was given IV fluids, rehydration, and supportive care, and is feeling comfortable to go back to [facility] at this time. FINAL DIAGNOSES: 1. Acute renal failure secondary to dehydration. 2. Hypernatremia secondary to dehydration and inadequate oral fluid intake. 3. Chronic lower extremity wounds, stable. OPERATIONS, PROCEDURES, COMPLICATIONS, CONSULTATIONS: None. DISPOSITION: Continue meds as ordered including amlodipine 10 mg and losartan 50 mg and no diuretics. Daily low-dose aspirin prophylaxis and wound care [facility]. Multivitamins daily. I will see him in the office and follow up as needed. He is in a [facility] facility for rehab and inability to care for himself. GARETH DODD MD DR: JESSICA/will JOB#: [id number] / [id number]
[2016-05-20] MEDS: FAMOTIDINE 20 MG TABLET. PO SCH (08:16)
[2016-05-20] MEDS: ASPIRIN 81 MG TAB.CHEW PO SCH (08:16)
[2016-05-20] MEDS: ALLOPURINOL 100 MG TABLET. PO SCH (08:16)
[2016-05-20] MEDS: AMLODIPINE BESYLATE 10 MG TABLET PO SCH (08:17)
[2016-05-20] MEDS: LOSARTAN POTASSIUM 50 MG TABLET. PO SCH (08:17)
[2016-05-20 11:24] VITALS: BP 116/69
--- NOTE | 2016-05-20 11:42 | PDOC ---
PROGRESS NOTES Assessment Problems Medical Problems: (1) Acute renal failure Status: Acute Metabolic encephalopathy without evidence of stroke, seizures, or intracranial infection. Perhaps this was all medication side effects, particularly Benadryl. He is better Suspect prior dementia MRI brain negative for new stroke Additional laboratory studies unremarkable Plan Return to [facility] unit Reevaluate in my clinic in 4-6 weeks, as it is not appropriate to make a diagnosis of dementia in the setting of acute medical illness. Subjective No complaints Objective Vital Signs Date Time Temp Pulse Resp B/P Pulse Ox O2 Delivery O2 Flow Rate FiO2 05/20/16 11:24 97.9 85 16 116/69 97 Room Air 97.9 Intake and Output 05/20/16 07:00 Intake Total 1270 ml Balance 1270 ml Intake Oral 1270 ml # Voids 5 PHYSICAL EXAM Alert. Oriented to person, place, month year PERRL. EOMI. CN: no focal findings. Muscle tone: normal. Muscle strength: 4/5 DTR: 2+. There are bilateral grasp reflexes Plantar reflex: Flexor Gait: not examined in bed. Sensory exam: no abnormal findings. No cerebellar signs elicited. Review of Relevant I have reviewed the following items geno (where applicable) has been applied. Labs Laboratory Tests Test 05/19/16 03:25 White Blood Count 12.4x10^3/uL (4.0-11.0) Red Blood Count 4.86x10^6/uL (4.30-5.70) Hemoglobin 12.8g/dL (13.0-17.5) Hematocrit 39.7% (39.0-53.0) Mean Corpuscular Volume 82fL (79-100) Mean Corpuscular Hemoglobin 26pg (25-35) Mean Corpuscular Hemoglobin Concent 32g/dL (31-37) Red Cell Distribution Width 19.6% (11.5-14.5) Platelet Count 167x10^3/uL (140-400) Neutrophils (%) (Auto) 74% (31-73) Lymphocytes (%) (Auto) 10% (24-48) Monocytes (%) (Auto) 9% (0-9) Eosinophils (%) (Auto) 6% (0-3) Basophils (%) (Auto) 1% (0-3) Neutrophils # (Auto) 9.2x10^3uL (1.8-7.7) Lymphocytes # (Auto) 1.3x10^3/uL (1.0-4.8) Monocytes # (Auto) 1.1x10^3/uL (0.0-1.1) Eosinophils # (Auto) 0.7x10^3/uL (0.0-0.7) Basophils # (Auto) 0.1x10^3/uL (0.0-0.2) Erythrocyte Sedimentation Rate 10 (0-15) Sodium Level 149mmol/L (136-145) Potassium Level 3.8mmol/L (3.5-5.1) Chloride Level 113mmol/L (98-107) Carbon Dioxide Level 28mmol/L (21-32) Anion Gap 8 (6-14) Blood Urea Nitrogen 33mg/dL (8-26) Creatinine 1.6mg/dL (0.7-1.3) Estimated GFR (Cockcroft-Gault) 41.8 Glucose Level 84mg/dL (70-99) Calcium Level 8.4mg/dL (8.5-10.1) Vitamin B12 Level 695pg/mL (247-911) Serum Folate 14.23ng/ml (3.2-20.0) Thyroid Stimulating Hormone (TSH) 3.457uIU/mL (0.358-3.74) Microbiology 05/18/16 Urine Culture - Preliminary, Resulted 05/18/16 Urine Culture Result 1 (CHRISTY) - Preliminary, Resulted Medications Current Medications Sodium Chloride (Iv Sodium Chloride 0.9% 500ml Bag) 500 ml @ 500 mls/hr 1X ONCE IV Last administered on 05/17/16 01:25; Start 05/17/16 at 01:15; Stop 01/23 at 02:14; Status DC Ondansetron HCl 4 mg 4 mg PRN Q8HRS PRN IV NAUSEA/VOMITING; Start 05/17/16 at 01:45; Stop 05/18/16 at 01:44; Status DC Sodium Chloride (Iv Sodium Chloride 0.9% 1000ml Bag) 1,000 ml @ 150 mls/hr Q6H40M IV Last administered on 05/18/16 01:01; Start 05/17/16 at 01:45; Stop 05/18/16 at 01:44; Status DC Acetaminophen (Tylenol) 650 mg PRN Q4HRS PRN PO FEVER; Start 05/17/16 at 01:45 ; Stop 05/17/16 at 17:06; Status DC Acetaminophen (Tylenol) 650 mg PRN Q4HRS PO ; Start 05/17/16 at 09:45; Stop at 16:47; Status DC Allopurinol (Zyloprim) 100 mg DAILY PO Last administered on 05/20/16 08:16; Start 05/17/16 at 10:30 Amlodipine Besylate (Norvasc) 10 mg DAILY PO Last administered on 05/20/16 08: 17; Start 05/17/16 at 10:30 Aspirin (Children'S Aspirin) 81 mg DAILY PO Last administered on 05/20/16 08: 16; Start 05/17/16 at 10:30 Diphenhydramine HCl (Benadryl) 25 mg QID PO ; Start 05/17/16 at 13:00; Stop 01/23 at 13:00; Status DC Acetaminophen/ Hydrocodone Bitart (Lortab 5/325) 1 tab PRN Q6HRS PRN PO MODERATE - SEVERE PAIN; Start 05/17/16 at 09:45 Albuterol/ Ipratropium (Duoneb) 3 ml QID NEB Last administered on 05/20/16 10: 42; Start 05/17/16 at 13:00 Losartan Potassium (Cozaar) 50 mg DAILY PO Last administered on 05/20/16 08:17 ; Start 05/17/16 at 10:30 Famotidine (Pepcid) 20 mg BID PO Last administered on 05/20/16 08:16; Start at 10:30 Albuterol/ Ipratropium 3 ml 3 ml STK-MED ONCE .ROUTE Last administered on 10:54; Start 05/17/16 at 10:47; Stop 05/17/16 at 10:48; Status DC Sodium Chloride (Iv Sodium Chloride 0.45%) 1,000 ml @ 75 mls/hr [id number] IV Last administered on 05/18/16 22:27; Start 05/18/16 at 11:15; Stop 05/19/16 at 08:21; Status DC Acetaminophen (Tylenol) 650 mg PRN Q4HRS PRN PO MILD PAIN / TEMP; Start at 16:47 Active Scripts Active Clindamycin Hcl 300 Mg Capsule 300 Mg PO QID 7 Days [place] 5-325 Tablet (Acetaminophen/Hydrocodone Bitart) 1 Each Tablet 1 Tab PO PRN Q6HRS PRN Reported Zinc Oxide 30 Gm Oint...g. 30 Gm TP BID Cimetidine 400 Mg Tablet 400 Mg PO BID Pro-Stat Awc Liquid Packet (Amino Acids/Protein Hydrolys) 30 Ml Liquid.pkt 30 Ml PO DAILY Polyvinyl Alcohol 15 Ml Drops 15 Ml OP PRN Q15MIN PRN Nystatin 15 Gm Powder 1 Nishant TP BID Daily Vitamin Formula-Minerals (Multivitamin With Minerals) 1 Each Tablet 1 Each PO Miconazole Nitrate 30 Gm Cream..g. 30 Gm TP BID Losartan Potassium 50 Mg Tablet 50 Mg PO DAILY Levofloxacin 500 Mg Tablet 1 Tab PO DAILY Fluconazole 200 Mg Tablet 1 Tab PO BID Duoneb 0.5-3(2.5) Mg/3 Ml (Albuterol/Ipratropium) 3 Ml Ampul.neb 3 Ml NEB QID Cephalexin 500 Mg Capsule 1 Cap PO BID Biotene (Saliva Substitution Combo No.9) 1,000 Ml Mouthwash 1,000 Ml MM QID Benadryl (Diphenhydramine Hcl) 25 Mg Capsule 2 Cap PO QID Amlodipine Besylate 10 Mg Tablet 10 Mg PO DAILY Tylenol (Acetaminophen) 325 Mg Tablet 1 Tab PO PRN Q4HRS Aspirin 81 Mg Tab.chew 81 Mg PO DAILY Allopurinol 100 Mg Tablet 100 Mg PO DAILY Vitals/I & O Vital Sign - Last 24 Hours 05/19/16 05/19/16 05/19/16 05/19/16 14:35 17:01 19:00 20:00 Temp 98.5 97.9 98.5 97.9 Pulse 86 70 Resp 18 20 B/P 112/50 140/65 Pulse Ox 94 90 O2 Delivery Room Air Room Air Room Air Room Air 05/19/16 05/19/16 05/20/16 05/20/16 20:36 23:00 03:00 07:01 Temp 97.5 97.5 97.5 97.5 Pulse 71 89 Resp 20 16 B/P 122/78 149/99 Pulse Ox 96 92 95 95 O2 Delivery Room Air Room Air Room Air Room Air 05/20/16 05/20/16 05/20/16 05/20/16 07:08 08:00 08:17 08:17 Temp 97.7 97.7 Pulse 79 79 79 Resp 20 B/P 132/82 132/82 132/82 Pulse Ox 96 O2 Delivery Room Air Room Air 05/20/16 05/20/16 10:43 11:24 Temp 97.9 97.9 Pulse 85 Resp 16 B/P 116/69 Pulse Ox 95 97 O2 Delivery Room Air Room Air Intake and Output 05/19/16 05/19/16 05/20/16 15:00 23:00 07:00 Intake Total 300 ml 620 ml 350 ml Balance 300 ml 620 ml 350 ml OSBALDO LANDRUM MD May 20, 2016 11:42
[2016-05-20 14:40] VITALS: BP 124/83
[2016-05-20 19:10] VITALS: BP 121/69
[2016-05-20] MEDS ORDERED: FAMOTIDINE 20 MG TABLET. PO SCH (21:00)
[2016-05-20 23:10] VITALS: BP 133/87
[2016-05-21 03:10] VITALS: BP 132/83
[2016-05-21 07:15] VITALS: BP 119/81
[2016-05-21] MEDS: IPRATRPIUM/ALBUTEROL 0.5/2.5MG 3 ML NEBU. NEB SCH ×3 (07:40→15:00)
[2016-05-21] MEDS: ASPIRIN 81 MG TAB.CHEW PO SCH (09:28)
[2016-05-21] MEDS: ALLOPURINOL 100 MG TABLET. PO SCH (09:28)
[2016-05-21] MEDS: LOSARTAN POTASSIUM 50 MG TABLET. PO SCH (09:28)
[2016-05-21] MEDS: AMLODIPINE BESYLATE 10 MG TABLET PO SCH (09:28)
[2016-05-21 11:10] VITALS: BP 129/68
--- NOTE | 2016-05-21 11:31 | PDOC ---
PROGRESS NOTES Assessment Problems Medical Problems: (1) Acute renal failure Status: Acute Metabolic encephalopathy without evidence of stroke, seizures, or intracranial infection. Perhaps this was all medication side effects, particularly Benadryl. He is better Suspect prior dementia MRI brain negative for new stroke Additional laboratory studies unremarkable Plan Return to detention unit Reevaluate in my clinic in 4-6 weeks, as it is not appropriate to make a diagnosis of dementia in the setting of acute medical illness. Subjective no complaints Objective Vital Signs Date Time Temp Pulse Resp B/P Pulse Ox O2 Delivery O2 Flow Rate FiO2 05/21/16 11:18 Room Air 05/21/16 11:10 97.3 75 20 129/68 95 97.3 Intake and Output 05/21/16 07:00 Intake Total 1460 ml Output Total 500 ml Balance 960 ml Intake Oral 1460 ml Output Urine Total 500 ml # Voids 5 PHYSICAL EXAM Alert. Oriented to person, month year, cannot name hospital PERRL. EOMI. CN: no focal findings. Muscle tone: normal. Muscle strength: 4/5 DTR: 2+. There are bilateral grasp reflexes Plantar reflex: Flexor Gait: not examined in bed. Sensory exam: no abnormal findings. No cerebellar signs elicited. Review of Relevant I have reviewed the following items geno (where applicable) has been applied. Labs Microbiology 05/18/16 Urine Culture - Final, Complete 05/18/16 Urine Culture Result 1 (CHRISTY) - Final, Complete Medications Current Medications Sodium Chloride (Iv Sodium Chloride 0.9% 500ml Bag) 500 ml @ 500 mls/hr 1X ONCE IV Last administered on 05/17/16 01:25; Start 05/17/16 at 01:15; Stop 01/23 at 02:14; Status DC Ondansetron HCl 4 mg 4 mg PRN Q8HRS PRN IV NAUSEA/VOMITING; Start 05/17/16 at 01:45; Stop 05/18/16 at 01:44; Status DC Sodium Chloride (Iv Sodium Chloride 0.9% 1000ml Bag) 1,000 ml @ 150 mls/hr Q6H40M IV Last administered on 05/18/16 01:01; Start 05/17/16 at 01:45; Stop 05/18/16 at 01:44; Status DC Acetaminophen (Tylenol) 650 mg PRN Q4HRS PRN PO FEVER; Start 05/17/16 at 01:45 ; Stop 05/17/16 at 17:06; Status DC Acetaminophen (Tylenol) 650 mg PRN Q4HRS PO ; Start 05/17/16 at 09:45; Stop at 16:47; Status DC Allopurinol (Zyloprim) 100 mg DAILY PO Last administered on 05/21/16 09:28; Start 05/17/16 at 10:30 Amlodipine Besylate (Norvasc) 10 mg DAILY PO Last administered on 05/21/16 09: 28; Start 05/17/16 at 10:30 Aspirin (Children'S Aspirin) 81 mg DAILY PO Last administered on 05/21/16 09: 28; Start 05/17/16 at 10:30 Diphenhydramine HCl (Benadryl) 25 mg QID PO ; Start 05/17/16 at 13:00; Stop 01/23 at 13:00; Status DC Acetaminophen/ Hydrocodone Bitart (Lortab 5/325) 1 tab PRN Q6HRS PRN PO MODERATE - SEVERE PAIN; Start 05/17/16 at 09:45 Albuterol/ Ipratropium (Duoneb) 3 ml QID NEB Last administered on 05/21/16 11: 16; Start 05/17/16 at 13:00 Losartan Potassium (Cozaar) 50 mg DAILY PO Last administered on 05/21/16 09:28 ; Start 05/17/16 at 10:30 Famotidine (Pepcid) 20 mg BID PO Last administered on 05/20/16 08:16; Start at 10:30; Stop 05/20/16 at 15:25; Status DC Albuterol/ Ipratropium 3 ml 3 ml STK-MED ONCE .ROUTE Last administered on 10:54; Start 05/17/16 at 10:47; Stop 05/17/16 at 10:48; Status DC Sodium Chloride (Iv Sodium Chloride 0.45%) 1,000 ml @ 75 mls/hr [id number] IV Last administered on 05/18/16 22:27; Start 05/18/16 at 11:15; Stop 05/19/16 at 08:21; Status DC Acetaminophen (Tylenol) 650 mg PRN Q4HRS PRN PO MILD PAIN / TEMP; Start at 16:47 Famotidine (Pepcid) 20 mg QHS PO Last administered on 05/20/16t 20:50; Start at 21:00 Active Scripts Active Clindamycin Hcl 300 Mg Capsule 300 Mg PO QID 7 Days [place] 5-325 Tablet (Acetaminophen/Hydrocodone Bitart) 1 Each Tablet 1 Tab PO PRN Q6HRS PRN Reported Zinc Oxide 30 Gm Oint...g. 30 Gm TP BID Cimetidine 400 Mg Tablet 400 Mg PO BID Pro-Stat Awc Liquid Packet (Amino Acids/Protein Hydrolys) 30 Ml Liquid.pkt 30 Ml PO DAILY Polyvinyl Alcohol 15 Ml Drops 15 Ml OP PRN Q15MIN PRN Nystatin 15 Gm Powder 1 Nishant TP BID Daily Vitamin Formula-Minerals (Multivitamin With Minerals) 1 Each Tablet 1 Each PO Miconazole Nitrate 30 Gm Cream..g. 30 Gm TP BID Losartan Potassium 50 Mg Tablet 50 Mg PO DAILY Levofloxacin 500 Mg Tablet 1 Tab PO DAILY Fluconazole 200 Mg Tablet 1 Tab PO BID Duoneb 0.5-3(2.5) Mg/3 Ml (Albuterol/Ipratropium) 3 Ml Ampul.neb 3 Ml NEB QID Cephalexin 500 Mg Capsule 1 Cap PO BID Biotene (Saliva Substitution Combo No.9) 1,000 Ml Mouthwash 1,000 Ml MM QID Benadryl (Diphenhydramine Hcl) 25 Mg Capsule 2 Cap PO QID Amlodipine Besylate 10 Mg Tablet 10 Mg PO DAILY Tylenol (Acetaminophen) 325 Mg Tablet 1 Tab PO PRN Q4HRS Aspirin 81 Mg Tab.chew 81 Mg PO DAILY Allopurinol 100 Mg Tablet 100 Mg PO DAILY Vitals/I & O Vital Sign - Last 24 Hours 05/20/16 05/20/16 05/20/16 05/20/16 14:40 15:07 18:28 19:10 Temp 97.9 97.9 97.9 97.9 Pulse 89 81 Resp 16 18 B/P 124/83 121/69 Pulse Ox 98 95 O2 Delivery Room Air Room Air Room Air Room Air 05/20/16 05/20/16 05/21/16 05/21/16 20:00 23:10 03:10 07:15 Temp 97.8 98.4 97.9 97.8 98.4 97.9 Pulse 82 73 73 Resp 18 18 18 B/P 133/87 132/83 119/81 Pulse Ox 95 93 95 O2 Delivery Room Air Room Air Room Air Room Air 05/21/16 05/21/16 05/21/16 05/21/16 07:41 08:00 09:28 09:28 Pulse 73 73 B/P 119/81 119/81 Pulse Ox 98 O2 Delivery Room Air Room Air 05/21/16 05/21/16 11:10 11:18 Temp 97.3 97.3 Pulse 75 Resp 20 B/P 129/68 Pulse Ox 95 O2 Delivery Room Air Room Air Intake and Output 05/20/16 05/20/16 05/21/16 15:00 23:00 07:00 Intake Total 720 ml 740 ml Output Total 100 ml 400 ml Balance 620 ml 340 ml OSBALDO LANDRUM MD May 21, 2016 11:31
[2016-05-21 14:57] VITALS: BP 121/76
== END 2016-05-21 15:10 | DRG 682 ==
LOC: ER 23:49 → 6 SOUTH 05-17 01:25
PROVIDERS: ADMIT Family Medicine; ATTEND Family Medicine
DX: N17.9 Acute kidney failure, unspecified (principal); G93.41 Metabolic encephalopathy; E87.0 Hyperosmolality and hypernatremia; E86.0 Dehydration; F03.90 Unspecified dementia, unspecified severity, without behavioral disturbance, psychotic disturbance, mood disturbance, and anxiety; I48.91 Unspecified atrial fibrillation; I50.9 Heart failure, unspecified; M10.9 Gout, unspecified; N18.9 Chronic kidney disease, unspecified; R56.9 Unspecified convulsions; Z96.649 Presence of unspecified artificial hip joint; M19.90 Unspecified osteoarthritis, unspecified site; Z82.49 Family history of ischemic heart disease and other diseases of the circulatory system
CPT/HCPCS: 36415; 70551; 80048; 81001; 82607; 82746; 84443; 85007; 85027; 85651; 87086; 87641; 93005; 94640; 94760; J7030; J7040; J7620; 97110; 97116; 99285-25

== ENCOUNTER → 2016-07-03 | Outpatient (CLI) | payer OTHER ==
[~2016-07-03] MED LIST changes: +ACET325T9 PO; +AMIN30LI5 PO; +AMLO10TA2 PO; +CEPH500C PO; +CIME400T PO; +DIPH25CA58 PO; +FLUC200T4 PO; +HYDR-2666 PO; +IPRA3AMP NEB; +LEVO500T8 PO; +LOSA50TA6 PO; +MICO30CR11 TP; +MULT-237 PO; +NYST30PO9 TP; +POLY15DR20 OP; +SALI10002 MM; +ZINC30OI TP
== END | disposition home or self-care (01) ==
LOC: PMGWOUND 13:55
PROVIDERS: ATTEND Emergency Medicine Undersea and Hyperbaric Medicine
DX: I87.313 Chronic venous hypertension (idiopathic) with ulcer of bilateral lower extremity (principal); L97.211 Non-pressure chronic ulcer of right calf limited to breakdown of skin; L97.221 Non-pressure chronic ulcer of left calf limited to breakdown of skin; I48.91 Unspecified atrial fibrillation; Z87.891 Personal history of nicotine dependence
CPT/HCPCS: 97597

== ENCOUNTER → 2016-07-07 | Outpatient (CLI) | payer OTHER ==
[~2016-07-07] MED LIST changes: +NYST15PO9 TP; -NYST30PO9 TP
== END | disposition home or self-care (01) ==
LOC: PMGWOUND 14:02
PROVIDERS: ATTEND Emergency Medicine Undersea and Hyperbaric Medicine
DX: I87.313 Chronic venous hypertension (idiopathic) with ulcer of bilateral lower extremity (principal); L97.211 Non-pressure chronic ulcer of right calf limited to breakdown of skin; L97.221 Non-pressure chronic ulcer of left calf limited to breakdown of skin; I48.91 Unspecified atrial fibrillation; Z87.891 Personal history of nicotine dependence
CPT/HCPCS: 29581

== ENCOUNTER → 2016-07-14 | Outpatient (CLI) | payer OTHER | END | disposition home or self-care (01) | LOC: PMGWOUND 13:15 | PROVIDERS: ATTEND Emergency Medicine Undersea and Hyperbaric Medicine | DX: I87.313 Chronic venous hypertension (idiopathic) with ulcer of bilateral lower extremity (principal); L97.221 Non-pressure chronic ulcer of left calf limited to breakdown of skin; L97.211 Non-pressure chronic ulcer of right calf limited to breakdown of skin; I48.91 Unspecified atrial fibrillation; Z87.891 Personal history of nicotine dependence | CPT/HCPCS: 29581; 97597 ==

== ENCOUNTER → 2016-07-21 | Outpatient (CLI) | payer OTHER | END | disposition home or self-care (01) | LOC: PMGWOUND 12:28 | PROVIDERS: ATTEND Emergency Medicine Undersea and Hyperbaric Medicine | DX: I87.313 Chronic venous hypertension (idiopathic) with ulcer of bilateral lower extremity (principal); L97.221 Non-pressure chronic ulcer of left calf limited to breakdown of skin; L97.211 Non-pressure chronic ulcer of right calf limited to breakdown of skin; I48.91 Unspecified atrial fibrillation; Z87.891 Personal history of nicotine dependence | CPT/HCPCS: 29581 ==

== ENCOUNTER → 2016-07-28 | Outpatient (CLI) | payer OTHER | END | disposition home or self-care (01) | LOC: PMGWOUND 12:53 | PROVIDERS: ATTEND Emergency Medicine Undersea and Hyperbaric Medicine | DX: I87.313 Chronic venous hypertension (idiopathic) with ulcer of bilateral lower extremity (principal); L97.211 Non-pressure chronic ulcer of right calf limited to breakdown of skin; L97.221 Non-pressure chronic ulcer of left calf limited to breakdown of skin; I48.91 Unspecified atrial fibrillation; Z87.891 Personal history of nicotine dependence | CPT/HCPCS: 29581 ==

== ENCOUNTER → 2016-08-05 | Outpatient (CLI) | payer OTHER | END | disposition home or self-care (01) | LOC: PMGWOUND 12:58 | PROVIDERS: ATTEND Emergency Medicine Undersea and Hyperbaric Medicine | DX: I87.313 Chronic venous hypertension (idiopathic) with ulcer of bilateral lower extremity (principal); L97.211 Non-pressure chronic ulcer of right calf limited to breakdown of skin; L97.221 Non-pressure chronic ulcer of left calf limited to breakdown of skin; I48.91 Unspecified atrial fibrillation; Z87.891 Personal history of nicotine dependence | CPT/HCPCS: 29581 ==

== ENCOUNTER → 2016-08-11 | Outpatient (CLI) | payer OTHER | END | disposition home or self-care (01) | LOC: PMGWOUND 12:26 | PROVIDERS: ATTEND Emergency Medicine Undersea and Hyperbaric Medicine | DX: I87.313 Chronic venous hypertension (idiopathic) with ulcer of bilateral lower extremity (principal); L97.211 Non-pressure chronic ulcer of right calf limited to breakdown of skin; L97.221 Non-pressure chronic ulcer of left calf limited to breakdown of skin; I48.91 Unspecified atrial fibrillation; Z87.891 Personal history of nicotine dependence | CPT/HCPCS: 99213 ==